=== PATIENT | female | born 1945 | race Caucasian/White ===

== ENCOUNTER → 2022-12-06 14:49 | Outpatient (BNVA) | payer MEDICARE, SELFPAY | PROVIDERS: Visit Provider Hospitalist | DX: J43.2 Centrilobular emphysema (principal); J96.11 Chronic respiratory failure with hypoxia; G47.33 Obstructive sleep apnea (adult) (pediatric); Z99.89 Dependence on other enabling machines and devices; S22.000D Wedge compression fracture of unspecified thoracic vertebra, subsequent encounter for fracture with routine healing | CPT/HCPCS: 99202 ==

== ENCOUNTER 2022-12-25 10:57 | Outpatient (REF) | payer MEDICARE, SELFPAY ==
--- NOTE | 2022-12-25 15:40 | PFT_ITS ---
INDICATION: COPD. SPIROMETRY: FEV1 to FVC of 64% with an FEV1 of 0.81 L, which is 43% predicted and an FVC of 1.26 L, which is 50% predicted. No significant response to bronchodilators noted. Maximum voluntary ventilation 36% predicted. LUNG VOLUMES: Total lung capacity 73% predicted. DIFFUSION CAPACITY: DLCO 44% predicted. COMPARISONS: None. INTERPRETATION: There is an obstructive ventilatory defect consistent with severe COPD. No significant response to bronchodilators noted. There is also severe decrease in maximum voluntary ventilation secondary to likely deconditioning. In addition to this, the patient does have a mild restrictive ventilatory defect secondary to likely interstitial lung conditions and/or neuromuscular conditions. The patient also has a severe diffusion impairment. No comparison is available. Clinical correlation warranted. MD RANJIT Ortiz/MODL / [id number]
== END 2022-12-25 10:58 | disposition home or self-care (01) ==
LOC: HO.RESP 10:57
PROVIDERS: Visit Provider Hospitalist
DX: J44.9 Chronic obstructive pulmonary disease, unspecified (principal)
CPT/HCPCS: 94060; 94727; 94729

== ENCOUNTER → 2023-02-06 09:42 | Outpatient (BNVA) | payer MEDICARE, SELFPAY | PROVIDERS: PCP Nurse Practitioner Primary Care; Visit Provider Hospitalist | DX: J43.2 Centrilobular emphysema (principal); J96.11 Chronic respiratory failure with hypoxia; G47.33 Obstructive sleep apnea (adult) (pediatric); S22.000A Wedge compression fracture of unspecified thoracic vertebra, initial encounter for closed fracture; Z79.52 Long term (current) use of systemic steroids; Z79.899 Other long term (current) drug therapy; Z99.81 Dependence on supplemental oxygen; Z99.89 Dependence on other enabling machines and devices | CPT/HCPCS: 94618; 99212 ==

== ENCOUNTER 2023-11-22 09:31 | Outpatient (AMB) | payer MEDICARE, SELFPAY ==
[2023-11-22 09:38] VITALS: BP 102/60; PULSE 82; O2SAT 95; BMI 29.3
--- NOTE | 2023-11-22 09:38 | A.OFFVIS_ITS ---
Intake Vital Signs 11/22/23 09:38 Height 5 ft 2 in Weight 160 lb 0.94 oz BMI 29.3 BP 102/60 Blood Pressure Location Lt brachial Position Sitting Pulse 82 Pulse Source Pulse Oximeter Pulse Oximetry (%) 95 Oxygen Delivery Method Room Air Intake Visit Reasons: COPD Intake Note: pt is here for follow up and states she is doing well today with her breathing, was in hospital after ablation surgery that the next day had to call ambulance due to unable to wake her, DX elevated CO2, touch of pneumonia, and flu at [facility], Marketing Strategy Analyst Required: No Allergies acetaminophen [From Percocet] Adverse Reaction (Severe, Verified 11/22/23 09:43) Vomiting aspirin [From Percodan] Adverse Reaction (Severe, Verified 11/22/23 09:43) Vomiting oxycodone [From Percocet] Adverse Reaction (Severe, Verified 11/22/23 09:43) Vomiting HPI HPI Comments History of Present Illness Details The patient is a 78 year woman former smoker with a 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 The patient has been on Incruse for many years. She has also been on prednisone. Her last CT scan of the chest that we have on record was done at [facility] back in 2021 demonstrating extensive emphysema in addition to that does have evidence of compression fractures. She does not complain of significant pain. Although she is aware that the prednisone will potentially affect her healing and potentially cause worsening of the osteopenia and osteoporosis predisposing her to more fractures. The her last PFTs occurred back in 2020 with an FEV1 of 0.9 L which is around 60% predicted consistent moderate to severe COPD. The patient does have oxygen that she uses with activity. She also has a CPAP that she uses at nighttime. 02/06/2023 the patient is here for a pulmo nary follow-up visit. The patient doing a lot better on the Trelegy inhaler. She still using the oxygen although difficult to carry. We did do a conserving device trial she did good on 3 L pulse. Will try to get a portable oxygen concentrator in order for her to have better portability outside the home. In the meantime, she will continue with the B cylinders the. We did review her PFTs demonstrating severe COPD in addition to mild restrictive lung disease. She continues to use her CPAP. However, she is not tolerating the fullface mask. I did have a nasal N30i small mask that she tried in the like. I will send a prescription to her [employer] company as well. 11/22/2023 the patient is here for a pulmonary follow-up visit. She continues to do fairly well on the Trelegy inhaler. She does use it every day. She also has a rescue inhaler that she has not required. The patient is having issues with shortness breath. She does have the oxygen tanks but they are very heavy for her. Is hard for her to have any portability outside of the home with the oxygen tanks. We had requested a portable oxygen concentrator for her. She does qualify for the conserving device. We did requalify her with a 6 minute walk test today and again she did require 2 L pulse to maintain a pulse ox of 92%. Will go ahead and request from her [employer] company the POC for better portability. In the meantime the patient continues to use her CPAP at nighttime. With her underlying COPD and chronic respiratory failure will go ahead and check a blood gas to see if we need to consider noninvasive ventilation. Her last CT scan was from June 2023 with emphysematous changes. no pulmonary emboli appreciated on the CT scan. [facility] Medical History (Updated 12/11/22 @ 09:25 by Shon Gunderson MD) NAKIA on CPAP Compression fracture of body of thoracic vertebra Chronic respiratory failure COPD (chronic obstructive pulmonary disease) Dependence on nocturnal oxygen therapy BRENDA (iron deficiency anemia) (HFpEF) heart failure with preserved ejection fraction Aortic stenosis GERD (gastroesophageal reflux disease) Hypertension Atrial fibrillation Surgical History (Updated 12/06/22 @ 13:47 by Jerri Noguera PA-C) Presence of Watchman left atrial appendage closure device S/P cryoablation of arrhythmia Social History Patient Tobacco Use Status: Former Tobacco user Tobacco use type: Cigarette Years Smoked: 20+ Years Review of Systems Const Reports daytime sleepiness and Denies fever(s) Eyes Denies change in vision ENT Denies change in voice Card Denies chest pain and Reports dyspnea on exertion Resp Reports cough, Reports dyspnea on exertion and Denies wheezing GI Reports no additional complaints Musc Reports myalgias Skin/Breast Denies rash Neuro Reports no additional complaints Martin/Lymph Denies easy bruising and Denies lymphadenopathy Aller/Immun Denies wheezing Physical Exam Vital Signs: Last Vital Signs Pulse 82 11/22/23 09:38 BP 102/60 11/22/23 09:38 Pulse Ox 95 11/22/23 09:38 Oxygen Delivery Method Room Air 11/22/23 09:38 BMI result Body Mass Index 29.3 Const General: comfortable HEENT Head: Yes normocephalic Neck Neck: Yes supple Chest Chest palpation & inspection: normal inspection of the chest Resp Auscultation: diminished lung sounds Cardio Rate: regular rate Rhythm: regular rhythm Heart sounds: S1 normal heart sound present and S2 normal heart sound present GI Palpation (GI): Soft to palpation Skin General skin exam: no rashes or lesions noted Extrem General: Yes no clubbing, cyanosis or edema Office Procedures 6 Minute Walk Time:: 19:12 SPO2 % at rest: 94 Pulse at rest: 78 SPO2 % during excercise: 88 Pulse during excercise: 90 Distance in yards walked: 100 Becky Score: 6 Supplemental Oxygen: The patient was ambulated initially on room air. She desaturated down to 88% after a brief walk. The patient was then placed on 2 L pulse and then increase to 3 L pulse to maintain a pulse ox of 92% with activity. [id number] - 6 Minute Walk Assessment & Plan Assessment & Plan (1) COPD (chronic obstructive pulmonary disease): Code(s): J44.9 - Chronic obstructive pulmonary disease, unspecified Qualifiers: COPD type: emphysema Emphysema type: centrilobular Qualified Code(s): J43.2 - Centrilobular emphysema (2) Chronic respiratory failure: Code(s): J96.10 - Chronic respiratory failure, unspecified whether with hypoxia or hypercapnia Qualifiers: Respiratory failure complication: hypoxia Qualified Code(s): J96.11 - Chronic respiratory failure with hypoxia (3) Compression fracture of body of thoracic vertebra: Code(s): S22.000A - Wedge compression fracture of unspecified thoracic vertebra, initial encounter for closed fracture (4) NAKIA on CPAP: Code(s): G47.33 - Obstructive sleep apnea (adult) (pediatric); Z99.89 - Dependence on other enabling machines and devices Plan continue Trelegy 200 BHARATI as needed continue APAP Bloodwork/blood gas continue oxygen, 3L pulse with activity, will benefit from a portable oxygen concentrator (POC) for better portability outside of the home. Decrease Prednisone 5mg daily every other day F/U 4-6 months Orders: Orders Venous Blood Gas 11/22/23 J44.9 - Chronic obstructive pulmonary disease, unspecified Immunoglobulin E 11/22/23 J44.9 - Chronic obstructive pulmonary disease, unspecified Erythrocyte Sedimentation Rate 11/22/23 J44.9 - Chronic obstructive pulmonary disease, unspecified Basic Metabolic Panel 11/22/23 J44.9 - Chronic obstructive pulmonary disease, unspecified Complete Blood Count Auto Diff 11/22/23 J44.9 - Chronic obstructive pulmonary disease, unspecified Immunoglobulins,IgG IgA IgM 11/22/23 J44.9 - Chronic obstructive pulmonary disease, unspecified Coding Level of Care Code Est Pt Level 4 (60287) Diagnoses Centrilobular emphysema J43.2 COPD type: emphysema Emphysema type: centrilobular Chronic respiratory failure with hypoxia J96.11 Respiratory failure complication: hypoxia Compression fracture of body of thoracic vertebra S22.000A NAKIA on CPAP G47.33; Z99.89 CPT Codes Coding ([id number]) Time Spent (min) 17
[2023-11-25 19:11] VITALS: PULSE 78; O2SAT 94
== END 2023-11-22 10:11 | disposition home or self-care (01) ==
PROVIDERS: PCP Nurse Practitioner Primary Care; Visit Provider Hospitalist
DX: J43.2 Centrilobular emphysema (principal); J96.11 Chronic respiratory failure with hypoxia; S22.000A Wedge compression fracture of unspecified thoracic vertebra, initial encounter for closed fracture; G47.33 Obstructive sleep apnea (adult) (pediatric); Z99.89 Dependence on other enabling machines and devices
CPT/HCPCS: 94618; 99214

== ENCOUNTER 2023-11-22 09:31 | Outpatient (REF) | payer MEDICARE, SELFPAY ==
[2023-11-22 10:27] LABS: MANUAL DIFF FLAG NO
[2023-11-22 10:33] LABS: Venous Blood Gas Refer to POC result
[2023-11-22 10:42] LABS: VBG pCO2 50 mmHg; VBG pH 7.47 (7.32-7.43); VBG pO2 30 mmHg
[2023-11-22 10:43] LABS: VBG Base Excess 11.7 mmol/L; VBG HCO3 36 mmol/L (22-26)
[2023-11-22 12:21] LABS: Anion Gap 11 (12-20); Blood Urea Nitrogen 18 mg/dL (9-16); Calcium 8.6 mg/dL (8.4-10.2); Carbon Dioxide 34 mmol/L (22-29); Chloride 101 mmol/L (96-108); Estimated Glomerular Filt Rate > 60; Glucose Random 84 mg/dL (60-115); Sodium 143 mmol/L (135-145)
[2023-11-22 12:23] LABS: Basophils Percent Auto 0.1 % (0-2); Hemoglobin 10.2 g/dl (12.0-16.0); Imm Gran Abs Auto 0.04 X10*3/uL (0.00-0.03); Imm Gran Pct Auto 0.4 % (0.0-0.4); Lymphocytes Absolute Auto 1.1 X10*3/uL (1.2-4.9); Lymphocytes Percent Auto 9.8 % (20-40); Mean Corpuscular HGB Conc 30.9 g/dl (31.0-35.0); Mean Corpuscular Volume 93.8 fL (80.0-98.0); Mean Platelet Volume 11.2 fL (9.4-12.3); Monocytes Absolute Auto 0.6 X10*3/uL (0.1-1.2); Monocytes Percent Auto 5.6 % (2-11); Neutrophils Absolute Auto 9.5 x10*3/uL (2.0-8.3); Neutrophils Percent Auto 84.1 % (45-73); Platelet Count 323 X10*3/uL (160-400); Red Blood Count 3.52 X10*6/uL (4.20-5.50); Red Cell Distribution Width 17.6 % (11.0-16.0); White Blood Count 11.3 X10*3/uL (4.8-10.8)
[2023-11-22 12:46] LABS: Erythrocyte Sedimentation Rate 23 MM/HR (0-20)
[2023-11-22 12:57] LABS: Potassium 2.7 mmol/L (3.3-5.1)
[2023-11-25 14:49] LABS: IgA 230 mg/dL (70-320); IgG 939 mg/dL (600-1540); IgM 222 mg/dL (50-300)
[2023-11-25 22:28] LABS: Immunoglobulin E 176 kU/L (<OR=114)
== END 2023-11-22 09:32 | disposition home or self-care (01) ==
LOC: HO.LAB 09:31
PROVIDERS: PCP Nurse Practitioner Primary Care; Visit Provider Hospitalist
DX: J43.2 Centrilobular emphysema (principal); J96.11 Chronic respiratory failure with hypoxia; J44.9 Chronic obstructive pulmonary disease, unspecified; G47.33 Obstructive sleep apnea (adult) (pediatric); Z99.81 Dependence on supplemental oxygen; Z99.89 Dependence on other enabling machines and devices
CPT/HCPCS: 36415; 80048; 82784; 82785; 82803; 85025; 85652; 94618; 99212

== ENCOUNTER 2024-03-25 09:16 | Outpatient (AMB) | payer MEDICARE, SELFPAY ==
--- NOTE | 2024-03-25 09:25 | MHC.OFFVIS ---
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 The patient has been on Incruse for many years. She has also been on prednisone. Her last CT scan of the chest that we have on record was done at [facility] back in 2021 demonstrating extensive emphysema in addition to that does have evidence of compression fractures. She does not complain of significant pain. Although she is aware that the prednisone will potentially affect her healing and potentially cause worsening of the osteopenia and osteoporosis predisposing her to more fractures. The her last PFTs occurred back in 2020 with an FEV1 of 0.9 L which is around 60% predicted consistent moderate to severe COPD. The patient does have oxygen that she uses with activity. She also has a CPAP that she uses at nighttime. 02/06/2023 the patient is here for a pulmonary follow-up visit. The patient doing a lot better on the Trelegy inhaler. She still using the oxygen although difficult to carry. We did do a conserving device trial she did good on 3 L pulse. Will try to get a portable oxygen concentrator in order for her to have better portability outside the home. In the meantime, she will continue with the B cylinders the. We did review her PFTs demonstrating severe COPD in addition to mild restrictive lung disease. She continues to use her CPAP. However, she is not tolerating the fullface mask. I did have a nasal N30i small mask that she tried in the like. I will send a prescription to her [employer] company as well. 11/22/2023 the patient is here for a pulmonary follow-up visit. She continues to do fairly well on the Trelegy inhaler. She does use it every day. She also has a rescue inhaler that she has not required. The patient is having issues with shortness breath. She does have the oxygen tanks but they are very heavy for her. Is hard for her to have any portability outside of the home with the oxygen tanks. We had requested a portable oxygen concentrator for her. She does qualify for the conserving device. We did requalify her with a 6 minute walk test today and again she did require 2 L pulse to maintain a pulse ox of 92%. Will go ahead and request from her [employer] company the POC for better portability. In the meantime the patient continues to use her CPAP at nighttime. With her underlying COPD and chronic respiratory failure will go ahead and check a blood gas to see if we need to consider noninvasive ventilation. Her last CT scan was from June 2023 with emphysematous changes. no pulmonary emboli appreciated on the CT scan. 03/25/2024 the patient is here for a pulmonary follow-up visit. She continues to do very well on the Trelegy inhaler. He has been very affecting beneficial. She has not required her rescue inhaler often. Typically less than 2 times a week. She also has been using her oxygen with the conserving device with activity. And she has her concentrator and home. She does use the oxygen with CPAP at nighttime. The therapy again has been effective. We did review her blood work that she had back in November. It was noted that she was anemic and also her potassium is critically low. She has not had any additional blood work since then. We had given her supplementation. I did give her paperwork for labs which will mail to her house in order for her to get blood work at [place]. There is her primary care doctor will have full access to her blood work as well. Make sure that she has not further new making make sure the potassium is corrected. But clinically she feels very well. Will follow-up in 6 months. If she has not difficulties prior to that she will call for an earlier assessment. [facility] Medical History (Updated 03/25/24 @ 22:07 by Shon Gunderson MD) Hypokalemia Anemia NAKIA on CPAP Compression fracture of body of thoracic vertebra Chronic respiratory failure COPD (chronic obstructive pulmonary disease) Dependence on nocturnal oxygen therapy BRENDA (iron deficiency anemia) (HFpEF) heart failure with preserved ejection fraction Aortic stenosis GERD (gastroesophageal reflux disease) Hypertension Atrial fibrillation Surgical History (Updated 12/06/22 @ 13:47 by Jerri Noguera PA-C) Presence of Watchman left atrial appendage closure device S/P cryoablation of arrhythmia Social History Patient Tobacco Use Status: Former Tobacco user Tobacco use type: Cigarette Years Smoked: 20+ Years Review of Systems Const Reports daytime sleepiness and Denies fever(s) Eyes Denies change in vision ENT Denies change in voice Card Denies chest pain and Reports dyspnea on exertion Resp Reports cough, Reports dyspnea on exertion and Denies wheezing GI Reports no additional complaints Musc Reports myalgias Skin/Breast Denies rash Neuro Reports no additional complaints Martin/Lymph Denies easy bruising and Denies lymphadenopathy Aller/Immun Denies wheezing Physical Exam Vital Signs: Last Vital Signs Pulse 77 03/25/24 09:26 Pulse Ox 95 03/25/24 09:26 Oxygen Delivery Method Room Air 03/25/24 09:26 BMI result Body Mass Index 29.3 Const General: comfortable HEENT Head: Yes normocephalic Neck Neck: Yes supple Chest Chest palpation & inspection: normal inspection of the chest Resp Auscultation: diminished lung sounds Cardio Rate: regular rate Rhythm: regular rhythm Heart sounds: S1 normal heart sound present and S2 normal heart sound present GI Palpation (GI): Soft to palpation Skin General skin exam: no rashes or lesions noted Extrem General: Yes no clubbing, cyanosis or edema Assessment & Plan Assessment & Plan (1) COPD (chronic obstructive pulmonary disease): Code(s): J44.9 - Chronic obstructive pulmonary disease, unspecified Category: Medical Qualifiers: COPD type: emphysema Emphysema type: centrilobular Qualified Code(s): J43.2 - Centrilobular emphysema (2) Chronic respiratory failure: Code(s): J96.10 - Chronic respiratory failure, unspecified whether with hypoxia or hypercapnia Category: Medical Qualifiers: Respiratory failure complication: hypoxia Qualified Code(s): J96.11 - Chronic respiratory failure with hypoxia (3) Compression fracture of body of thoracic vertebra: Code(s): S22.000A - Wedge compression fracture of unspecified thoracic vertebra, initial encounter for closed fracture Category: Medical (4) NAKIA on CPAP: Code(s): G47.33 - Obstructive sleep apnea (adult) (pediatric); Z99.89 - Dependence on other enabling machines and devices Category: Medical (5) Anemia: Code(s): D64.9 - Anemia, unspecified Category: Medical Qualifiers: Anemia type: unspecified type Qualified Code(s): D64.9 - Anemia, unspecified (6) Hypokalemia: Code(s): E87.6 - Hypokalemia Category: Medical Plan continue Trelegy 200 BHARATI as needed continue APAP Bloodwork continue oxygen, 3L pulse with activity, will benefit from a portable oxygen concentrator (POC) for better portability outside of the home. She waiting to qualify Prednisone 5mg daily every other day F/U 4-6 months Orders: Orders Complete Blood Count Auto Diff Today D64.9 - Anemia, unspecified, E87.6 - Hypokalemia Basic Metabolic Panel Today E87.6 - Hypokalemia Medications: New prednisone 10 mg (2 x 5 mg) PO DAILY 180 tabs 2RF 90 days Coding Level of Care Code Est Pt Level 4 (33186) Diagnoses Centrilobular emphysema J43.2 COPD type: emphysema Emphysema type: centrilobular Chronic respiratory failure with hypoxia J96.11 Respiratory failure complication: hypoxia Compression fracture of body of thoracic vertebra S22.000A NAKIA on CPAP G47.33; Z99.89 Anemia, unspecified type D64.9 Anemia type: unspecified type Hypokalemia E87.6 Time Spent (min) 16
[2024-03-25 09:26] VITALS: PULSE 77; O2SAT 95; BMI 29.3
== END 2024-03-25 09:47 | disposition home or self-care (01) ==
PROVIDERS: PCP Nurse Practitioner Primary Care; Visit Provider Hospitalist
DX: J43.2 Centrilobular emphysema (principal); J96.11 Chronic respiratory failure with hypoxia; S22.000A Wedge compression fracture of unspecified thoracic vertebra, initial encounter for closed fracture; G47.33 Obstructive sleep apnea (adult) (pediatric); Z99.89 Dependence on other enabling machines and devices; D64.9 Anemia, unspecified; E87.6 Hypokalemia
CPT/HCPCS: 99214

== ENCOUNTER → 2024-03-25 09:16 | Outpatient (BNVA) | payer MEDICARE, SELFPAY | PROVIDERS: PCP Nurse Practitioner Primary Care; Visit Provider Hospitalist | DX: J43.2 Centrilobular emphysema (principal); J96.11 Chronic respiratory failure with hypoxia; G47.33 Obstructive sleep apnea (adult) (pediatric); D64.9 Anemia, unspecified; E87.6 Hypokalemia; S22.000D Wedge compression fracture of unspecified thoracic vertebra, subsequent encounter for fracture with routine healing; Z99.89 Dependence on other enabling machines and devices | CPT/HCPCS: 99212 ==

== ENCOUNTER 2024-07-31 09:21 | Outpatient (AMB) | payer MEDICARE, SELFPAY ==
[2024-07-31 09:28] VITALS: BP 128/70; PULSE 84; O2SAT 94
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
[2024-07-31 12:41] VITALS: PULSE 78; O2SAT 92
== END 2024-07-31 09:56 | disposition home or self-care (01) ==
PROVIDERS: PCP Nurse Practitioner Primary Care; Visit Provider Hospitalist
DX: J43.2 Centrilobular emphysema (principal); J96.11 Chronic respiratory failure with hypoxia; S22.000A Wedge compression fracture of unspecified thoracic vertebra, initial encounter for closed fracture; G47.33 Obstructive sleep apnea (adult) (pediatric); Z99.89 Dependence on other enabling machines and devices; D64.9 Anemia, unspecified; E87.6 Hypokalemia
CPT/HCPCS: 94618; 99214; G2211

== ENCOUNTER → 2024-07-31 09:21 | Outpatient (BNVA) | payer MEDICARE, SELFPAY | PROVIDERS: PCP Nurse Practitioner Primary Care; Visit Provider Hospitalist | DX: J43.2 Centrilobular emphysema (principal); J96.11 Chronic respiratory failure with hypoxia; G47.33 Obstructive sleep apnea (adult) (pediatric); D64.9 Anemia, unspecified; E87.6 Hypokalemia; S22.000A Wedge compression fracture of unspecified thoracic vertebra, initial encounter for closed fracture; X58.XXXA Exposure to other specified factors, initial encounter; Y93.9 Activity, unspecified; Y92.9 Unspecified place or not applicable; Y99.9 Unspecified external cause status; Z79.52 Long term (current) use of systemic steroids; Z99.89 Dependence on other enabling machines and devices | CPT/HCPCS: 94618; 99212 ==

== ENCOUNTER 2025-03-16 11:09 | Outpatient (AMB) | payer MEDICARE, SELFPAY ==
[2025-03-16 11:12] VITALS: BP 130/52; PULSE 65; O2SAT 94; BMI 30.8
--- NOTE | 2025-03-16 11:12 | MHC.OFFVIS ---
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 The patient has been on Incruse for many years. She has also been on prednisone. Her last CT scan of the chest that we have on record was done at back in 2021 demonstrating extensive emphysema in addition to that does have evidence of compression fractures. She does not complain of significant pain. Although she is aware that the prednisone will potentially affect her healing and potentially cause worsening of the osteopenia and osteoporosis predisposing her to more fractures. The her last PFTs occurred back in 2020 with an FEV1 of 0.9 L which is around 60% predicted consistent moderate to severe COPD. The patient does have oxygen that she uses with activity. She also has a CPAP that she uses at nighttime. 02/06/2023 the patient is here for a pulmonary follow-up visit. The patient doing a lot better on the Trelegy inhaler. She still using the oxygen although difficult to carry. We did do a conserving device trial she did good on 3 L pulse. Will try to get a portable oxygen concentrator in order for her to have better portability outside the home. In the meantime, she will continue with the B cylinders the. We did review her PFTs demonstrating severe COPD in addition to mild restrictive lung disease. She continues to use her CPAP. However, she is not tolerating the fullface mask. I did have a nasal N30i small mask that she tried in the like. I will send a prescription to her [email or web address] company as well. 11/22/2023 the patient is here for a pulmonary follow-up visit. She continues to do fairly well on the Trelegy inhaler. She does use it every day. She also has a rescue inhaler that she has not required. The patient is having issues with shortness breath. She does have the oxygen tanks but they are very heavy for her. Is hard for her to have any portability outside of the home with the oxygen tanks. We had requested a portable oxygen concentrator for her. She does qualify for the conserving device. We did requalify her with a 6 minute walk test today and again she did require 2 L pulse to maintain a pulse ox of 92%. Will go ahead and request from her [email or web address] company the POC for better portability. In the meantime the patient continues to use her CPAP at nighttime. With her underlying COPD and chronic respiratory failure will go ahead and check a blood gas to see if we need to consider noninvasive ventilation. Her last CT scan was from June 2023 with emphysematous changes. no pulmonary emboli appreciated on the CT scan. 03/25/2024 the patient is here for a pulmonary follow-up visit. She continues to do very well on the Trelegy inhaler. He has been very affecting beneficial. She has not required her rescue inhaler often. Typically less than 2 times a week. She also has been using her oxygen with the conserving device with activity. And she has her concentrator and home. She does use the oxygen with CPAP at nighttime. The therapy again has been effective. We did review her blood work that she had back in November. It was noted that she was anemic and also her potassium is critically low. She has not had any additional blood work since then. We had given her supplementation. I did give her paperwork for labs which will mail to her house in order for her to get blood work at [place]. There is her primary care doctor will have full access to her blood work as well. Make sure that she has not further new making make sure the potassium is corrected. But clinically she feels very well. Will follow-up in 6 months. If she has not difficulties prior to that she will call for an earlier assessment. 07/31/2024 the patient is here for a pulmonary follow-up visit. She has been hospitalized times since we spoke. Overall she is doing better from a cardiac standpoint. The patient now needs to have a hernia repair for ventral hernia. This is going to be scheduled at [facility]. From a respiratory status she is doing well. She had been on Trelegy but now is extremely expensive likely because of the donut hole. She continues use the oxygen. Although she has not been able to get a portable oxygen concentrator. She is traumatized because of the oxygen tanks specially when on 1 of the oxygen tanks fell down to the ground and made a significant amount of noise and now she has traumatized with the oxygen tanks that she does not want to leave her house with the portable oxygen tanks. She needs a portable oxygen concentrator to help her have better portability outside of the home. We did do another walking oximetry today. She did desaturate to 88% on room air with activity and the patient did respond to 2 L pulse with activity maintaining a pulse ox of 94% with activity which is reassuring. She does need a POC in order to stay active. Today she came in with a wheelchair because she has a hard time without the I will reach out to [facility] [place] to explain to her the traumatize state that she has after the oxygen tank fell and therefore she can not use oxygen tanks for portability. She continues uses CPAP nighttime. The CPAP therapy continues to be affecting beneficial. Although the last 2 nights she has had nose bleeding she has not been able to use it. She is going to follow-up with ENT soon. She did need cautery sometime ago. For now she is using oxygen to sleep with. 03/16/2025 the patient is here for a pulmonary follow-up visit. She states that for the last few days her breathing has been gotten worse. Over the weekend she did take additional prednisone and also been doing the nebulizer treatments. She has felt better. Although she is still not her baseline. As far as medication changes recently she was taken off her Lasix 40 mg daily because her blood pressure was a little on the low side. She feels that that may be playing a role. I do believe she has gained some weight since stopping the Lasix and this is probably causing some vascular congestion. She does have some crackles on exam. Will have her get an x-ray. Meantime she is going to go back on the Lasix half dose and she is going to check her blood pressure with a blood pressure cuff she has not home. If her blood pressure still below 100 she can decrease it to half a tablet 3 times a week. But she needs to stay on some diuretic to improve her volume status minimize chest congestion and cardiac asthma. The patient also continues on prednisone he continues with respiratory therapy in her oxygen. If her x-ray is abnormal I will let her know. In the meantime she will call if her symptoms continue to persist. Will follow-up in 3-4 months. If she has any issues prior to that she will call for an earlier assessment. [facility] Medical History (Updated 03/25/24 @ 22:07 by Shon Gunderson MD) Hypokalemia Anemia NAKIA on CPAP Compression fracture of body of thoracic vertebra Chronic respiratory failure COPD (chronic obstructive pulmonary disease) Dependence on nocturnal oxygen therapy BRENDA (iron deficiency anemia) (HFpEF) heart failure with preserved ejection fraction Aortic stenosis GERD (gastroesophageal reflux disease) Hypertension Atrial fibrillation Surgical History (Updated 12/06/22 @ 13:47 by Jerri Noguera PA-C) Presence of Watchman left atrial appendage closure device S/P cryoablation of arrhythmia Social History Patient Tobacco Use Status: Former Tobacco user Tobacco use type: Cigarette Years Smoked: 20+ Years Review of Systems Const Reports daytime sleepiness and Denies fever(s) Eyes Denies change in vision ENT Denies change in voice Card Denies chest pain and Reports dyspnea on exertion Resp Reports cough, Reports dyspnea on exertion and Denies wheezing GI Reports no additional complaints Musc Reports myalgias Skin/Breast Denies rash Neuro Reports no additional complaints Martin/Lymph Denies easy bruising and Denies lymphadenopathy Aller/Immun Denies wheezing Physical Exam Vital Signs: Last Vital Signs Pulse 65 03/16/25 11:12 BP 130/52 L 03/16/25 11:12 Pulse Ox 94 03/16/25 11:12 Oxygen Delivery Method Room Air 03/16/25 11:12 BMI result Body Mass Index 30.8 Const General: comfortable HEENT Head: Yes normocephalic Neck Neck: Yes supple Chest Chest palpation & inspection: normal inspection of the chest Resp Effort & Inspection: normal respiratory effort Auscultation: crackles and diminished lung sounds Cardio Rate: regular rate Rhythm: regular rhythm Heart sounds: S1 normal heart sound present and S2 normal heart sound present GI Palpation (GI): Soft to palpation Skin General skin exam: no rashes or lesions noted Extrem General: Yes no clubbing, cyanosis or edema Assessment & Plan Assessment & Plan (1) COPD (chronic obstructive pulmonary disease): Code(s): J44.9 - Chronic obstructive pulmonary disease, unspecified Category: Medical Qualifiers: COPD type: emphysema Emphysema type: centrilobular Qualified Code(s): J43.2 - Centrilobular emphysema (2) Chronic respiratory failure: Code(s): J96.10 - Chronic respiratory failure, unspecified whether with hypoxia or hypercapnia Category: Medical Qualifiers: Respiratory failure complication: hypoxia Qualified Code(s): J96.11 - Chronic respiratory failure with hypoxia (3) Compression fracture of body of thoracic vertebra: Code(s): S22.000A - Wedge compression fracture of unspecified thoracic vertebra, initial encounter for closed fracture Category: Medical (4) NAKIA on CPAP: Code(s): G47.33 - Obstructive sleep apnea (adult) (pediatric); Z99.89 - Dependence on other enabling machines and devices Category: Medical (5) Anemia: Code(s): D64.9 - Anemia, unspecified Category: Medical Qualifiers: Anemia type: unspecified type Qualified Code(s): D64.9 - Anemia, unspecified Plan continue Trelegy 200 BHARATI as needed continue APAP Bloodwork needs POC oxygen, 3L pulse with activity, will benefit from a portable oxygen concentrator (POC) for better portability outside of the home. restart lasix, will monitor BP CXR Prednisone 5mg daily every other day F/U 4 months Orders: Orders XR chest 2V Today J43.2 - Centrilobular emphysema Coding Level of Care Code Est Pt Level 4 (94308) Complex EM visit Add On G2211 Diagnoses Centrilobular emphysema J43.2 COPD type: emphysema Emphysema type: centrilobular Chronic respiratory failure with hypoxia J96.11 Respiratory failure complication: hypoxia Compression fracture of body of thoracic vertebra S22.000A NAKIA on CPAP G47.33; Z99.89 Anemia, unspecified type D64.9 Anemia type: unspecified type Time Spent (min) 17
== END 2025-03-16 11:37 | disposition home or self-care (01) ==
LOC: HO.HPS 11:10
PROVIDERS: PCP Nurse Practitioner Primary Care; Visit Provider Hospitalist
DX: J43.2 Centrilobular emphysema (principal); J96.11 Chronic respiratory failure with hypoxia; S22.000A Wedge compression fracture of unspecified thoracic vertebra, initial encounter for closed fracture; G47.33 Obstructive sleep apnea (adult) (pediatric); Z99.89 Dependence on other enabling machines and devices; D64.9 Anemia, unspecified
CPT/HCPCS: 99214; G2211

== ENCOUNTER → 2025-03-16 11:09 | Outpatient (BNVA) | payer MEDICARE, SELFPAY | PROVIDERS: PCP Nurse Practitioner Primary Care; Visit Provider Hospitalist | DX: J43.2 Centrilobular emphysema (principal); J96.11 Chronic respiratory failure with hypoxia; I48.91 Unspecified atrial fibrillation; G47.33 Obstructive sleep apnea (adult) (pediatric); D64.9 Anemia, unspecified; S22.000A Wedge compression fracture of unspecified thoracic vertebra, initial encounter for closed fracture; Z79.52 Long term (current) use of systemic steroids; Z99.89 Dependence on other enabling machines and devices | CPT/HCPCS: 99212 ==

== ENCOUNTER 2025-03-19 11:44 | Outpatient (REF) | payer MEDICARE, SELFPAY ==
--- NOTE | ~2025-03-19 | XR_ITS ---
EXAMINATION: XR CHEST 2 VIEWS HISTORY: J43.2 - Centrilobular emphysema COMPARISON: There are no prior studies available for comparison. FINDINGS: PA and lateral views of the chest are submitted. There is an implantable cardiac monitoring device in the left anterior chest wall. There are patchy groundglass opacities in the left upper lobe. An additional ovoid nodule is seen in the left midlung zone. The right lung is clear. There is no pleural effusion, pneumothorax, or pulmonary vascular congestion. The heart is enlarged. The patient is status post aortic valve replacement. There is degenerative disc disease of the spine. XR/XR chest 2V IMPRESSION: Cardiomegaly. Groundglass opacities in the left upper lobe and ovoid nodule in the left midlung zone. Further evaluation with chest CT is recommended. Findings were sent to Dr. Shon Gunderson by secure text message on 03/19/2025 at 12:36 PM and acknowledged at 12:38 PM. Electronically signed by: Odell Morfin MD 03/19/2025 12:38 PM EDT
--- OUTSIDE RECORDS SUMMARY | 2025-03-19 12:45 | XMS_ITS | Clinical Summary ---
Author Organization [facility] [employer] Address [address] [facility] [place] [address] Phone Care Team Providers Care Public Health Veterinarian Name Role Phone Jerri Leija NP Primary Care Provider [phone] Allergies Active Allergy Reactions Criticality Noted Date Comments Azithromycin High 04/18/2017 Adverse Reaction, Severe, places her into AFIB Oxycodone Nausea And Vomiting Medium 11/10/2021 Oxycodone Hcl Nausea And Vomiting Medium 11/10/2021 Oxycodone-Aspirin 01/03/2017 Medications predniSONE (DELTASONE) 10 mg tablet Take 1 tab daily x 4 days, then 1/2 tab daily 4 Active metoprolol succinate (TOPROL-XL) 25 mg 24 hr tablet Take 0.5 Tablets by mouth daily. 4 Active levalbuterol (XOPENEX HFA) 45 mcg/actuation inhaler Inhale 1-2 Puffs into the lungs every 4 hours as needed for Wheezing, Shortness of Breath or Cough. 3 Active ferrous sulfate 325 mg (65 mg elemental iron) tablet Take 1 tablet (325 mg total) by mouth 1 (one) time each day. 4 Active fluticasone-ume clidinium-vilan terol (Trelegy Ellipta) 200-62.5-25 mcg inhaler INHALE 1 PUFF BY MOUTH DAILY FOR 30 DAYS 3 Active ASPIRIN ORAL Take by mouth. 81 MG Active multivitamin (MULTIPLE VITAMINS ORAL) TAKE 1 TABLET DAILY. 7 Active levalbuterol (XOPENEX) 0.31 mg/3 mL nebulizer solution Sig - Route: TAKE 3 ML BY NEBULIZATION EVERY 4 HOURS NEEDED FOR WHEEZING, SHORTNESS OF BREATH OR COUGH. - Nebulization Sent to pharmacy as: Levalbuterol HCl 0.31 MG/3ML Inhalation Nebulization Solution (XOPENEX) Active clotrimazole-be tamethasone (LOTRISONE) 1-0.05 % cream Sig: Apply to affected area twice daily as needed for maximum of 14 consecutive days Sent to pharmacy as: Clotrimazole-Bet amethasone 1-0.05 % External Cream Active atorvastatin (LIPITOR) 40 mg tabletIndicatio ns:Coronary artery disease involving [place] coronary artery of [place] heart without angina pectoris Take 1 tablet (40 mg total) by mouth 1 (one) time each day. 30 each 11 4 09/14/20 25 Active potassium chloride (MICRO-K) 10 mEq CR capsule TAKE 1 CAPSULE BY MOUTH DAILY FOR 360 DAYS. 90 capsule 1 5 Active omeprazole (PriLOSEC) [address] capsuleIndicati ons:Gastro-esop hageal reflux disease without esophagitis TAKE 1 CAPSULE BY MOUTH DAILY FOR 360 DAYS. 90 capsule 1 5 Active furosemide (LASIX) 40 mg tabletIndicatio ns:Gastro-esoph ageal reflux disease without esophagitis,Non rheumatic aortic (valve) stenosis TAKE 1 TABLET BY MOUTH EVERY DAY 90 tablet 1 5 Active polyethylene glycol (Miralax) 17 gram/dose oral powder Take 17 g by mouth 1 (one) time each day. 527 g 2 5 Active Active Problems Problem Noted Date Diagnosed Date Hypercholesterolemia 12/23/2024 Chronic bilateral low back pain with bilateral s ciatica 12/23/2024 Hx of atrioventricular node ablation 09/22/2024 Overview (09/22/2024): Status post AV node ablation and leadless ventricular pacemaker placement in June 2024. Follow-up capture thresholds and sensing are excellent. No [place] conduction. Pacemaker 09/14/2024 Overview (09/22/2024): June 29, 2024 - implant of SJM leadless pacemaker(aveir) with AV node ablation at [facility] by Dr. Berg Assessment & Plan (09/14/2024 12:48 PM EST): Functioning well on EKG. Continue to monitor through device clinic at [facility]. S/p TAVR (transcatheter aort ic valve replacement), bioprosthetic 09/01/2024 Overview (09/01/2024): Successful TAVR using 29mm Evolute Fx plus on July 20, [address] Vogt at [facility]. No complications. Discharged with Aspirin monotherapy. Assessment & Plan (09/22/2024 9:51 AM EST): Successful TAVR in July. I will have her schedule her post TAVR echo which was canceled when she was in the hospital. Assessment & Plan (09/14/2024 12:48 PM EST): Successful TAVR using 29mm EvoluteFx plus Bioprosthetic valve on 07/20/24. No complications. The patient is having symptomatic improvement following her TAVR. Her valve is workup well on exam and by symptoms. Instructed patient about the need for prophylactic antibiotics prior to dental work. She needs her one month TAVR echocardiogram completed. Coronary artery disease invo lving [place] coronary artery of [place] heart without angina pectoris 09/01/2024 Overview (09/01/2024): June 2024 - pre TAVR angiogram showed isolated 70% stenosis of the 1st diagonal artery Assessment & Plan (09/22/2024 9:51 AM EST): Stable coronary disease without active angina. Continue aspirin and atorvastatin. Assessment & Plan (09/14/2024 12:48 PM EST): Catheterization from 2023 showed isolated 70% stenosis of 1st diag with no other significant disease. Echocardiogram from July 2024 showed low normal LV systolic function with akinesis of mid to distal inferoseptal wall and apex. No anginal symptoms. Continue with aspirin, atorvastatin, metoprolol and furosemide. We discussed risk reduction through lifestyle choices including healthy diet, routine exercise and weight management. Orders: atorvastatin (LIPITOR) 40 mg tablet; Take 1 tablet (40 mg total) by mouth 1 (one) time each day. Ventral hernia 07/03/2024 Moderate persistent asthma without complication 01/23/2023 Acute respiratory failure wi th hypoxia ([facility] V24, [facility] V28) 01/04/2022 Chest pain 01/04/2022 (HFpEF) heart failure with p reserved ejection fraction ([facility] V24, [facility] V28) 01/04/2022 Overview (09/01/2024): July 2024 - Echocardiogram showed low normal left ventricular systolic function LVEF 50 to 55%, mild left ventricular hypertrophy, left atrial dilatation, preserved right ventricular systolic function, well-seated bioprosthetic TAVR valve with no evidence of prosthetic valve stenosis and mild perivalvular regurgitation Assessment & Plan (09/22/2024 9:50 AM EST): Appears euvolemic on exam today. Will continue current medications and low- sodium diet. Dyspnea much improved after TAVR and AV node ablation. Assessment & Plan (09/14/2024 12:48 PM EST): Echocardiogram from July 2024 showed low normal LV systolic function LVEF 50- 55%. Status post successful TAVR. She appears compensated on exam. Continue with furosemide, metoprolol and potassium supplement. Consider adding SGLT2 inhibitor. We reviewed heart failure management including low-sodium diet, symptom surveillance, daily weights and medication compliance. Atrial flutter ([facility] V24, [facility] V28) 2020 Shortness of breath on exertion 08/17/2021 Assessment & Plan (09/14/2024 12:48 PM EST): Residual combination of anemia, COPD and deconditioning. We discussed risk reduction through lifestyle choices including healthy diet, routine exercise and weight management. Follow up with pulmonary at regular interval and participate in cardiac and pulmonary rehab. Asthma 01/02/2018 Supplemental oxygen dependent 01/02/2018 Emphysema/COPD ([facility] V24, [facility] V28) 2016 Hypertension 08/11/2017 Assessment & Plan (09/14/2024 12:48 PM EST): Controlled. Continue with furosemide and metoprolol. Atrial fibrillation ([facility] V24, [facility] V28) 0 06/12/2017 Overview (09/01/2024): Non-longstanding persistent atrial fibrillation - initially on sotalol for rhythm control - status post cardioversion - additional recurrence with questionable atrial tachycardia - March 28, 2022 status post cryoballoon ablation of pulmonary veins - October 2022 recurrent atrial fibrillation sotalol resumed and repeat radiofrequency cath ablation of left superior pulmonary vein and right inferior pulmonary vein with discontinuation of sotalol after procedure - late 2022 significant shortness of breath in setting of pulmonary disease with persistent atrial tachycardia versus atrial flutter - November 2023 status post atrial flutter radiofrequency ablation with cardioversion; inducible nonsustained right atrial tachycardia - recurrent GI bleeds with ultimate placement of Watchman Assessment & Plan (09/22/2024 9:50 AM EST): Chronic atrial fibrillation status post AV node ablation, permanent pacemaker and watchman. Continue aspirin. No further therapy needed. Continue device follow-up quarterly. Assessment & Plan (09/14/2024 12:48 PM EST): Extensive history followed by our EP providers. Asymptomatic. S/p AV node ablation and SJM leadless PPM. CHADSVASc - 6. Not on AC therapy due to Watchman. Continue with metporolol. Orders: ECG 12 lead Gastroesophageal reflux disease 06/12/2017 Iron deficiency anemia 06/12/2017 Multiple pulmonary nodules 06/12/2017 Resolved Problems Problem Noted Date Diagnosed Date Resolved Date Acute on chronic diastolic ( congestive) heart failure ([facility] V24, [facility] V28) 11/13/202209/01 Aortic stenosis 08/17/2021 09/01/2024 Overview (07/03/2024): Last Assessment & Plan: She does have moderate aortic stenosis which was also confirmed on MILLIE. Nothing to do at this time. Will continue to monitor. Likely minimally contributory to her dyspnea. Congestive heart failure (CH F) ([facility] V24, [facility] V28) 01/02/2018 09/01/2024 Encounters Date Type Department Care Team Description 03/11/2025 11:30 AM EDT Office Visit [facility] - [facility] [phone] Houston Cam MD Other constipation (Primary Dx); Hypotension, unspecified hypotension type 03/09/20[facility] [address] [place] [place] [phone] Jerri Leija NP Constipation 12/23/2024 10:48 AM EDT - 12/23/2024 11:59 PM EDT [facility] [address] [place] [place] [address] [place] [place] [phone] Discharge Disposition: Home or Self Care 12/23/2024 10:15 AM EDT [facility] [address] [place], [place] [address], [place] [phone] Jerri Leija NP Hypercholesterolemia (Primary Dx); Pulmonary emphysema, unspecified emphysema type ([facility] V24, [facility] V28); Moderate persistent asthma without complication; Longstanding persistent atrial fibrillation ([facility] V24, [facility] V28); Chronic heart failure with preserved ejection fraction ([facility] V24, [facility] V28); Gastroesophageal reflux disease without esophagitis; Iron deficiency anemia due to chronic blood loss; Chronic bilateral low back pain with bilateral sciatica 12/22/2024 10:00 AM EDT Ancillary Procedure [facility] [address] [place] [address] Encounter for adjustment or management of cardiac device from Last 3 Months Immunizations Name Administration Dates Next Due Influenza Quadravalent, 0.5ml (Fluad) 65yo and o lder 07/22/2023 Influenza Quadravalent, 0.5m l (Fluzone High-dose) 65yo and older 08/08/2022 Influenza trivalent, 0.5mL ( Fluzone High-dose) 65yo and older 06/06/2024 Influenza, Unspecified 06/06/2024 Pneumococcal conjugate 13 va lent (Prevnar 13, PCV13) 2mo and older 09/04/2016 Pneumococcal conjugate 20 va lent (Prevnar 20, PCV 20) 2mo and older 04/04/2022 Pneumococcal polysaccharide 23 valent (Pneumovax 23) 2yo and older 09/06/2017 RSV, bivalent, protein subun it RSVpreF, 0.5mL, Preservative Free (Arexvy) 60yo and older 08/11/2023 Surgical History Surgery Date Site/Laterality Comments APPENDECTOMY CARPAL TUNNEL RELEASE COLONOSCOPY 10/07/2015 - 10/06/2016 HERNIA REPAIR HYSTERECTOMY 10/07/1988 - 10/06/1989 NECK SURGERY OTHER SURGICAL HISTORY watchman procedure Medical History Medical History Date Comments A-fib ([facility] V24, [facility] V28) Acute respiratory failure with hypoxia (CMS/HCC V24, [facility] V28) Asthma Anxiety NAKIA on CPAP Ventral hernia SOB (shortness of breath) Sciatica Multiple pulmonary nodules COPD (chronic obstructive pulmonary disease) (CM S/HCC V24, CMS/HCC V28) CHF (congestive heart failure) (CMS/HCC V24, CMS /HCC V28) Acute pancreatitis Family History Medical History Relation Name Comments Emphysema Father [place] at 74 Heart attack Maternal Grandmother Breast cancer Mother chr, of b reast cancer at 50 Hypertension Mother unknown cardiac Mother Breast cancer Other mother side x2 aunts other Sister sciatiac , card iac Relation Name Status Comments Father Maternal Grandmother Mother Other mother side Sister Social History Tobacco Use Types Packs/Day Years Used Date Smoking Tobacco: Former Cigarettes Smokeless Tobacco: Never Tobacco Cessation:Counseling Given: Not Answered Alcohol Use Standard Drinks/Week Comments Not Currently 0 (1 standard drink = 0.6 oz pur e alcohol) Comments No Sex and Gender Information Value Date Recorded Sex Assigned at Not on file Legal Sex Female 11:56 AM EST Gender Identity Not on file Sexual Orientation Not on file Obstetrics History Last Filed Vital Signs Vital Sign Reading Time Taken Comments Blood Pressure 96/45 03/11/2025 11:30 AM EDT Pulse 71 03/11/2025 11:30 AM EDT Temperature - - Respiratory Rate - - Oxygen Saturation 93% 09/22/2024 9:02 AM EST Inhaled Oxygen Concentration - - Weight 75.4 kg (166 lb 4.8 oz) 03/11/2025 11:30 AM EDT Height 157.5 cm (5' 2 ) 12/23/2024 10:16 AM EDT Body Mass Index 30.42 12/23/2024 10:16 AM EDT Plan of Treatment Upcoming Encounters Date Type Department Care Team (Late st Contact Info) Description 04/26/2025 10:15 AM EDT [facility] [address] [place] [phone] Jerri Leija NP [address] [place] [address] 06/17/2025 10:30 AM EDT Ancillary Procedure [facility] [address] [facility] [address] [place] [phone] Health Maintenance Due Date Last Done Comments DTaP,Tdap,and Td Vaccines (1 - Tdap) 1965 Zoster Vaccines (1 of 2) 1996 Depression Screening 09/15/2022 Falls Risk Assessment 09/15/2022 Hepatitis C Screening 09/15/2022 Medicare Annual Wellness Visit 09/15/2022 Osteoporosis Screening (Bone Density Screening) 09/15/2022 Social Influencers of Health Screening 09/15/2022 COVID-19 Vaccine ( season) 2025 08/29/2024, 07/22/2023, 10/10/2022, Additional history exists Hypertension/CHF/CAD Annual BMP Blood Test 12/23/2025 12/23/2024, 08/19/2024, 05/06/2024, Additional history exists Cholesterol Screening (Lipid Panel) 12/23/2029 12/23/2024, 01/23/2023 Pneumococcal Vaccine: 50+ Years Completed 04/04/2022, 09/06/2017, 09/04/2016 RSV Immunization Adult Patients Completed 08/11/2023 Influenza Vaccine Completed 06/06/2024, , 07/22/2023, Additional history exists HIB Vaccines Aged Out No longer eligi ble based on patient's age to complete this topic HPV Vaccines Aged Out No longer eligi ble based on patient's age to complete this topic Hepatitis A Vaccines Aged Out No long er eligible based on patient's age to complete this topic Hepatitis B Vaccines Aged Out No long er eligible based on patient's age to complete this topic IPV Vaccines Aged Out No longer eligi ble based on patient's age to complete this topic MMR Vaccines Aged Out No longer eligi ble based on patient's age to complete this topic Meningococcal ACWY Vaccine Aged Out N o longer eligible based on patient's age to complete this topic Meningococcal B Vaccine Aged Out No l onger eligible based on patient's age to complete this topic RSV Immunization Patients Under 20 months Aged Out No longer eligible based on patient's age to complete this topic Varicella Vaccines Aged Out No longer eligible based on patient's age to complete this topic Medical Devices Implanted Type Area Bronze Chaser Device Identifier Shelf Expiration Date Model / Serial / Lot Cardiac Pacemaker-06/08 Implanted: by Gonzales Berg MD (Quantity not on file) Cardiac Pacemaker Right: Heart [facility] [employer] CRMD++DNU+ABBT/ STJU Description:Leadless Avier V R Abbt-Stju Aveir Vr Lp [id number] -06/29/2024 Implanted: by Gonzales Berg MD (Quantity not on file) Cardiac Pacemaker Left: Chest [employer] [employer] [id number] / [id number] / Abbt-Stju Aveir Vr Lp [id number] Implanted: (Quantity not on file) Cardiac Pacemaker [employer] [id number] / [id number] / Procedures Procedure Name Priority Date/Time Associated Diagnosis Comments CBC WITH AUTO DIFFERENTIAL Routine 12/23/2024 11:40 AM EDT Iron deficiency anemia due to chronic blood loss ALANINE AMINOTRANSFERASE Routine 025 11:40 AM EDT Hypercholesterolem ia ASPARTATE AMINOTRANSFERASE Routine 12/23/2024 11:40 AM EDT Hypercholesterolem ia BASIC METABOLIC PANEL Routine 12/23/2024 11:40 AM EDT Chronic heart failure with preserved ejection fraction (CMS/HCC V24, CMS/HCC V28) CBC AND DIFFERENTIAL Routine 12/23/2024 11:40 AM EDT Iron deficiency anemia due to chronic blood loss IRON AND TIBC Routine 12/23/2024 11:40 AM EDT Iron deficiency anemia due to chronic blood loss LIPID PANEL WITH REFLEX TO DIRECT LDL Routine 12/23/2024 11:40 AM EDT Hypercholesterolem ia XR LUMBAR SPINE 4+ VIEWS Routine 025 10:59 AM EDT Chronic bilateral low back pain with bilateral sciatica CARDIAC DEVICE CHECK- [place] [facility]- [facility] Routine 12/22/2024 10:10 AM EDT Encounter for adjustment or management of cardiac device from Last 3 Months Results * Lipid panel with reflex to direct LDL (12/23/2024 11:40 AM EDT) Cholesterol 157 0 - 200 mg/dL LAB CHEMISTRY METHOD 12/23/2024 3:43 PM EDT [facility] Triglycerides 122 0 - 150 mg/dL LAB CHEMISTRY METHOD 12/23/2024 3:43 PM EDT [facility] HDL 75 >=40 mg/dL LAB CHEMISTRY METHOD 12/23/2024 3:43 PM EDT [facility] LDL Calculated 58 0 - 100 mg/dL LAB CHEMISTRY METHOD 12/23/2024 3:43 PM EDT [facility] VLDL Cholesterol Tad 24.4 mg/dL LAB CHEMISTRY METHOD 12/23/2024 3:43 PM EDT [facility] Non HDL Chol. (LDL+VLDL) 82 <145 mg/dL LAB CHEMISTRY METHOD 12/23/2024 3:43 PM EDT [facility] Chol/HDL Ratio 2.1 0.0 - 4.4 LAB CHEMISTRY METHOD 12/23/2024 3:43 PM EDT [facility] Blood Venous blood specimen / Unknown Venipuncture / Unknown 12/23/2024 11:40 AM EDT 12/23/2024 11:43 AM EDT Jerri Leija PPAP COORDINATOR LAB BLOOD ORDERABLES Final Resu lt [facility] [address] [place] [address], * (ABNORMAL) CBC auto differential (12/23/2024 11:40 AM EDT) WBC 10.4 4.8 - 10.8 K/mcL LAB HEMETOLOGY METHOD 12/23/2024 2:20 PM EDT [facility] RBC 4.20 3.80 - 4.80 M/mcL LAB HEMETOLOGY METHOD 12/23/2024 2:20 PM EDT [facility] Hemoglobin 13.1 11.5 - 16.0 g/dL LAB HEMETOLOGY METHOD 12/23/2024 2:20 PM EDT [facility] Hematocrit 40.5 35.0 - 47.0 % LAB HEMETOLOGY METHOD 12/23/2024 2:20 PM EDT [facility] MCV 95.7 79.0 - 98.0 FL LAB HEMETOLOGY METHOD 12/23/2024 2:20 PM EDT [facility] MCH 31.0 27.0 - 32.0 pcg LAB HEMETOLOGY METHOD 12/23/2024 2:20 PM EDT [facility] MCHC 32.3 32.0 - 37.0 g/dL LAB HEMETOLOGY METHOD 12/23/2024 2:20 PM EDT [facility] RDW 13.8 11.0 - 15.0 % LAB HEMETOLOGY METHOD 12/23/2024 2:20 PM EDT [facility] Platelets 260 130 - 400 K/mcL LAB HEMETOLOGY METHOD 12/23/2024 2:20 PM EDT [facility] MPV 10.4 7.0 - 11.0 FL LAB HEMETOLOGY METHOD 12/23/2024 2:20 PM EDT [facility] NRBC 0.0 <1.0 % LAB HEMETOLOGY METHOD 12/23/2024 2:20 PM EDT [facility] NRBC Absolute 0.00 <0.10 K/mcL LAB HEMETOLOGY METHOD 12/23/2024 2:20 PM EDT [facility] Neutrophils Relative 83.2 % LAB HEMETOLOGY METHOD 12/23/2024 2:20 PM EDT [facility] Lymphocytes Relative 7.7 % LAB HEMETOLOGY METHOD 12/23/2024 2:20 PM EDT [facility] Monocytes Relative 7.1 % LAB HEMETOLOGY METHOD 12/23/2024 [facility] Eosinophils Relative 1.2 % LAB HEMETOLOGY METHOD 12/23/2024 2:20 PM T [facility] Basophils Relative 0.5 % LAB HEMETOLOGY METHOD 12/23/2024 2:20 PM EDT [facility] Immature Granulocytes Relative 0.3 % LAB HEMETOLOGY METHOD 12/23/2024 2:20 PM EDT [facility] Neutrophils Absolute 8.62(H) 1.50 - 7.00 K/mcL LAB HEMETOLOGY METHOD 12/23/2024 2:20 PM EDT [facility] Lymphocytes Absolute 0.80(L) 1.00 - 5.00 K/mcL LAB HEMETOLOGY METHOD 12/23/2024 2:20 PM EDT [facility] Monocytes Absolute 0.73 0.20 - 1.00 K/mcL LAB HEMETOLOGY METHOD 12/23/2024 2:20 PM EDT [facility] Eosinophils Absolute 0.12 0.00 - 0.50 K/mcL LAB HEMETOLOGY METHOD 12/23/2024 2:20 PM EDT [facility] Basophils Absolute 0.05 0.00 - 0.20 K/mcL LAB HEMETOLOGY METHOD 12/23/2024 2:20 PM EDT [facility] Immature Granulocytes Absolute 0.03 0.00 - 0.03 K/mcL LAB HEMETOLOGY METHOD 12/23/2024 2:20 PM EDT [facility] Blood Venous blood specimen / Unknown Venipuncture / Unknown 12/23/2024 11:40 AM EDT 12/23/2024 11:43 AM EDT us Jerri Leija PPAP COORDINATOR LAB BLOOD ORDERABLES Final Resu lt [facility] [address] [place] [address], * (ABNORMAL) Iron and TIBC (12/23/2024 11:40 AM EDT) Iron 191(H) 40 - 150 mcg/dL LAB CHEMISTRY METHOD 12/23/2024 3:43 PM EDT [facility] TIBC 275 250 - 450 mcg/dL LAB CHEMISTRY METHOD 12/23/2024 3:43 PM EDT [facility] Iron Saturation 69(H) 15 - 50 % LAB CHEMISTRY METHOD 12/23/2024 3:43 PM EDT [facility] Blood Venous blood specimen / Unknown Venipuncture / Unknown 12/23/2024 11:40 AM EDT 12/23/2024 11:43 AM EDT us Jerri Johnsonti LAB BLOOD ORDERABLES Final Resu lt Performing Organization Address [facility]/ZIP Co de Phone Number [facility] [address] [place] [address], [place] [phone] * Alanine aminotransferase (12/23/2024 11:40 AM EDT) ALT (SGPT) 24 10 - 60 unit/L LAB CHEMISTRY METHOD 12/23/2024 3:40 PM EDT [facility] Blood Venous blood specimen / Unknown Venipuncture / Unknown 12/23/2024 11:40 AM EDT 12/23/2024 11:43 AM EDT Jerri Leija LAB BLOOD ORDERABLES Final Resu lt Performing Organization Address [facility] Co de Phone Number [facility] [address] [place] [address], [place] [phone] * Aspartate aminotransferase (12/23/2024 11:40 AM EDT) AST (SGOT) 17 10 - 42 unit/L LAB CHEMISTRY METHOD 12/23/2024 3:43 PM EDT [facility] Blood Venous blood specimen / Unknown Venipuncture / Unknown 12/23/2024 11:40 AM EDT 12/23/2024 11:43 AM EDT Jerri Leija LAB BLOOD ORDERABLES Final Resu lt Performing Organization Address City/[facility]/ZIP Co de Phone Number [facility] [address] [place] [address], [place] [phone] * Basic metabolic panel (12/23/2024 11:40 AM EDT) Sodium 136 133 - 145 mmol/L LAB CHEMISTRY METHOD 12/23/2024 3:40 PM EDT [facility] Potassium 4.1 3.5 - 5.5 mmol/L LAB CHEMISTRY METHOD 12/23/2024 3:40 PM T [facility] Chloride 100 96 - 110 mmol/L LAB CHEMISTRY METHOD 12/23/2024 3:40 PM [facility] CO2 30 21 - 32 mmol/L LAB CHEMISTRY METHOD 12/23/2024 3:40 PM [facility] Anion Gap 6 3 - 11 LAB CHEMISTRY METHOD 12/23/2024 3:40 PM EDT [facility] Glucose 98 70 - 100 mg/dL LAB CHEMISTRY METHOD 12/23/2024 3:40 PM [facility] BUN 14 5 - 25 mg/dL LAB CHEMISTRY METHOD 12/23/2024 3:40 PM [facility] Creatinine 0.91 0.50 - 1.10 mg/dL LAB CHEMISTRY METHOD 12/23/2024 3:40 PM [facility] eGFR 65 >=60 mL/min/1. 73m2 LAB CHEMISTRY METHOD 12/23/2024 3:40 PM T [facility] Comment:Calculation based on the??Chronic Kidney Disease Epidemiology Collaboration (CKD-EPI) equation refit??without adjustment for race. BUN/Creatinine Ratio 15.4 LAB CHEMISTRY METHOD 12/23/2024 3:40 PM T [facility] Calcium 9.2 8.5 - 10.5 mg/dL LAB CHEMISTRY METHOD 12/23/2024 3:40 PM EDT [facility] Blood Venous blood specimen / Unknown Venipuncture / Unknown 12/23/2024 11:40 AM EDT 12/23/2024 11:43 AM EDT us Jerri Leija NP LAB BLOOD ORDERABLES Final Resu lt [facility] [address] [place] [address], * XR Lumbar Spine 4+ Views (12/23/2024 10:59 AM EDT) Anatomical Region Laterality Modality Spine, L-spine Radiographic Mackenzie ging 12/23/2024 1:43 PM EDT Impressions 12/23/2024 1:47 PM EDT Age-indeterminate anterior wedge deformity of L1 vertebral body. -------- FINAL REPORT -------- Dictated By: Feliciano Perea Dictated Date: 12/23/2024 13:43 ET Assigned Physician: Feliciano Perea Reviewed and Electronically Signed By: Feliciano Perea Signed Date: 12/23/2024 13:47 ET Workstation ID: [id number] Transcribed By: Self Edit Transcribed Date: 12/23/2024 13:43 ET Narrative 12/23/2024 1:47 PM EDT XR LUMBAR SPINE 5 VIEWS Reason: pain Comparison: None FINDINGS: Scoliosis. ??Grade 1 anterolisthesis of L4 on L5. ??Grade 1 retrolisthesis of L2 on L3 and L3 on L4. ??Diffuse bone demineralization and overlying soft tissue partially limits evaluation. ??Anterior wedge deformity of L1 vertebral body. ??Disc space narrowing and sclerotic endplate changes are more prominent at T11-T12. ??Sacroiliac joints are intact. Procedure Note Feliciano Perea MD - 12/23/2024 XR LUMBAR SPINE 5 VIEWS Reason: pain Comparison: None FINDINGS: Scoliosis. Grade 1 anterolisthesis of L4 on L5. Grade 1 retrolisthesisof L2 on L3 and L3 on L4. Diffuse bone demineralization and overlyingsoft tissue partially limits evaluation. Anterior wedge deformity of [id number] body. Disc space narrowing and sclerotic endplate changes aremore prominent at T11-T12. Sacroiliac joints are intact. IMPRESSION: Age-indeterminate anterior wedge deformity of L1 vertebral body. -------- FINAL REPORT -------- Dictated By: Feliciano Perea Dictated Date: 12/23/2024 13:43 ET Assigned Physician: Feliciano Perea Reviewed and Electronically Signed By: Feliciano Peera Signed Date: 12/23/2024 13:47 ET Workstation ID: [id number] Transcribed By: Self Edit Transcribed Date: 12/23/2024 13:43 ET Jerri Leija NP IMG XR PROCEDURES Final Result * CARDIAC DEVICE CHECK- IN CL[facility]- [facility] [place] (12/22/2024 10:10 AM EDT) Date Time Interrogation Session [id number] CV DEVICE CHECK Implantable Pulse Generator Bronze Chaser [employer] CV DEVICE CHECK Implantable Pulse Generator Type IPG CV DEVICE CHECK Implantable Pulse Generator Model Aveir VR LP [id number] CV DEVICE CHECK Implantable Pulse Generator Serial Number [id number] CV DEVICE CHECK Implantable Pulse Generator Implant Date 20240629 CV DEVICE CHECK Battery Status Middle of Service CV DEVICE CHECK Yann Statistic RV Percent Paced 99.00 CV DEVICE CHECK Lead Channel Sensing Intrinsic Amplitude 6.600 CV DEVICE CHECK Lead Channel Impedance Value 460 CV DEVICE CHECK Lead Channel Pacing Threshold Amplitude 0.750 CV DEVICE CHECK Lead Channel Pacing Threshold Pulse Width 0.4 CV DEVICE CHECK Yann Setting Mode (NBG Code) VVIR CV DEVICE CHECK Yann Setting Lower Rate Limit 60 CV DEVICE CHECK Yann Setting Maximum Sensor Rate 110 CV DEVICE CHECK Date of Service 2025-07-07 CV DEVICE CHECK Anatomical Region Laterality Modality Device Interroga tion 12/22/2024 Impressions 12/22/2024 3:04 PM EDT Normal In-Office: No Events * Normal Device Function * Alerts or events: None * Battery: MOS, 8.3 years * Sensing, impedance and thresholds reviewed and tested * Presenting Rhythm: CONTRACT ADMINISTRATOR 70's (base rate lowered to 60 bpm today, per protocol) * Underlying Rhythm: VS 30's * Heart Rate Histograms reviewed * Pacing and Detection Parameters were evaluated Narrative Procedure Note Gonzales Berg MD - 12/22/2024 IMPRESSION: Normal In-Office: No Events * Normal Device Function * Alerts or events: None * Battery: MOS, 8.3 years * Sensing, impedance and thresholds reviewed and tested * Presenting Rhythm: CONTRACT ADMINISTRATOR 70's (base rate lowered to 60 bpm today, perprotocol) * Underlying Rhythm: VS 30's * Heart Rate Histograms reviewed * Pacing and Detection Parameters were evaluated us Order Referral Cardiovascular CV IMPLANTABLE CAR DIAC DEVICE PROCEDURES Final Result from Last 3 Months Insurance [employer] MEDICARE ADVANTAGE Advance Directives Documents on File Type Date Recorded Patient Market News Reporter Expl anation Health Care Decision (hx) 11/11/2023 AD GARCIA DIRECTIVE Health Care Decision (hx) 11/11/2023 AD GARCIA DIRECTIVE Health Care Decision (hx) 11/11/2023 AD GARCIA DIRECTIVE Health Care Decision (hx) 02/06/2021 AD GARCIA DIRECTIVE Health Care Decision (hx) 02/06/2021 AD GARCIA DIRECTIVE Health Care Decision (hx) 02/06/2021 AD GARCIA DIRECTIVE Health Care Decision (hx) 02/06/2021 AD GARCIA DIRECTIVE Health Care Decision (hx) 02/06/2021 AD GARCIA DIRECTIVE Health Care Decision (hx) 02/06/2021 AD GARCIA DIRECTIVE Health Care Decision (hx) 02/06/2021 AD GARCIA DIRECTIVE Health Care Decision (hx) 02/06/2021 AD GARCIA DIRECTIVE Health Care Decision (hx) 02/06/2021 AD GARCIA DIRECTIVE Health Care Decision (hx) 02/06/2021 AD GARCIA DIRECTIVE Health Care Decision (hx) 02/06/2021 AD GARCIA DIRECTIVE Health Care Decision (hx) 02/06/2021 AD GARCIA DIRECTIVE Health Care Decision (hx) 02/06/2021 AD GARCIA DIRECTIVE Health Care Decision (hx) 02/06/2021 AD GARCIA DIRECTIVE Health Care Decision (hx) 02/06/2021 AD GARCIA DIRECTIVE Health Care Decision (hx) 02/06/2021 AD GARCIA DIRECTIVE Health Care Decision (hx) 02/06/2021 AD GARCIA DIRECTIVE Health Care Decision (hx) 02/06/2021 AD GARCIA DIRECTIVE Health Care Decision (hx) 02/06/2021 AD GARCIA DIRECTIVE Health Care Decision (hx) 02/06/2021 AD GARCIA DIRECTIVE Health Care Decision (hx) 02/06/2021 AD GARCIA DIRECTIVE Health Care Decision (hx) 02/06/2021 AD GARCIA DIRECTIVE Health Care Decision (hx) 02/06/2021 AD GARCIA DIRECTIVE Health Care Decision (hx) 02/06/2021 AD GARCIA DIRECTIVE Health Care Decision (hx) 02/06/2021 AD GARCIA DIRECTIVE Health Care Decision (hx) 02/06/2021 AD GARCIA DIRECTIVE Health Care Decision (hx) 02/06/2021 AD GARCIA DIRECTIVE Health Care Decision (hx) 02/06/2021 AD GARCIA DIRECTIVE Health Care Decision (hx) 02/06/2021 AD GARCIA DIRECTIVE Health Care Decision (hx) 02/26/2018 AD GARCIA DIRECTIVE Health Care Decision (hx) 02/26/2018 AD GARCIA DIRECTIVE Health Care Decision (hx) 02/26/2018 AD GARCIA DIRECTIVE Health Care Decision (hx) 02/26/2018 AD GARCIA DIRECTIVE Health Care Decision (hx) 02/26/2018 AD GARCIA DIRECTIVE Health Care Decision (hx) 02/26/2018 AD GARCIA DIRECTIVE Health Care Decision (hx) 02/26/2018 AD GARCIA DIRECTIVE Health Care Decision (hx) 02/26/2018 AD GARCIA DIRECTIVE Health Care Decision (hx) 02/26/2018 AD GARCIA DIRECTIVE Health Care Decision (hx) 02/26/2018 AD GARCIA DIRECTIVE Health Care Decision (hx) 02/26/2018 AD GARCIA DIRECTIVE Health Care Decision (hx) 02/26/2018 AD GARCIA DIRECTIVE Health Care Decision (hx) 02/26/2018 AD GARCIA DIRECTIVE Health Care Decision (hx) 02/26/2018 AD GARCIA DIRECTIVE Health Care Decision (hx) 02/26/2018 AD GARCIA DIRECTIVE Health Care Decision (hx) 02/26/2018 AD GARCIA DIRECTIVE Health Care Decision (hx) 02/26/2018 AD GARCIA DIRECTIVE Health Care Decision (hx) 02/26/2018 AD GARCIA DIRECTIVE Health Care Decision (hx) 02/26/2018 AD GARCIA DIRECTIVE Health Care Decision (hx) 02/26/2018 AD GARCIA DIRECTIVE Health Care Decision (hx) 02/26/2018 AD GARCIA DIRECTIVE Health Care Decision (hx) 02/26/2018 AD GARCIA DIRECTIVE Health Care Decision (hx) 02/26/2018 AD GARCIA DIRECTIVE Health Care Decision (hx) 02/26/2018 AD GARCIA DIRECTIVE Health Care Decision (hx) 02/26/2018 AD GARCIA DIRECTIVE Health Care Decision (hx) 02/26/2018 AD GARCIA DIRECTIVE Health Care Decision (hx) 02/26/2018 AD GARCIA DIRECTIVE Health Care Decision (hx) 02/26/2018 AD GARCIA DIRECTIVE Health Care Decision (hx) 02/26/2018 AD GARCIA DIRECTIVE Health Care Decision (hx) 02/26/2018 AD GARCIA DIRECTIVE Health Care Decision (hx) 02/26/2018 AD GARCIA DIRECTIVE Health Care Decision (hx) 02/26/2018 AD GARCIA DIRECTIVE Health Care Decision (hx) 02/26/2018 AD GARCIA DIRECTIVE Health Care Decision (hx) 02/26/2018 AD GARCIA DIRECTIVE Health Care Decision (hx) 02/26/2018 AD GARCIA DIRECTIVE Health Care Decision (hx) 02/26/2018 AD GARCIA DIRECTIVE Health Care Decision (hx) 02/26/2018 AD GARCIA DIRECTIVE Health Care Decision (hx) 02/26/2018 AD GARCIA DIRECTIVE Health Care Decision (hx) 02/26/2018 AD GARCIA DIRECTIVE Health Care Decision (hx) 02/26/2018 AD GARCIA DIRECTIVE Health Care Decision (hx) 02/26/2018 AD GARCIA DIRECTIVE Health Care Decision (hx) 02/26/2018 AD GARCIA DIRECTIVE Health Care Decision (hx) 02/26/2018 AD GARCIA DIRECTIVE Health Care Decision (hx) 01/26/2017 AD GARCIA DIRECTIVE Health Care Decision (hx) 01/26/2017 AD GARCIA DIRECTIVE Health Care Decision (hx) 01/26/2017 AD GARCIA DIRECTIVE Health Care Decision (hx) 01/26/2017 AD GARCIA DIRECTIVE Health Care Decision (hx) 01/26/2017 AD GARCIA DIRECTIVE Health Care Decision (hx) 01/26/2017 AD GARCIA DIRECTIVE Health Care Decision (hx) 01/26/2017 AD GARCIA DIRECTIVE Health Care Decision (hx) 01/26/2017 AD GARCIA DIRECTIVE Health Care Decision (hx) 01/26/2017 AD GARCIA DIRECTIVE Health Care Decision (hx) 01/26/2017 AD GARCIA DIRECTIVE Health Care Decision (hx) 01/26/2017 AD GARCIA DIRECTIVE Health Care Decision (hx) 01/26/2017 AD GARCIA DIRECTIVE Health Care Decision (hx) 01/26/2017 AD GARCIA DIRECTIVE Health Care Decision (hx) 01/26/2017 AD GARCIA DIRECTIVE Health Care Decision (hx) 01/26/2017 AD GARCIA DIRECTIVE Health Care Decision (hx) 01/26/2017 AD GARCIA DIRECTIVE Health Care Decision (hx) 01/26/2017 AD GARCIA DIRECTIVE Health Care Decision (hx) 01/26/2017 AD GARCIA DIRECTIVE Health Care Decision (hx) 01/26/2017 AD GARCIA DIRECTIVE Health Care Decision (hx) 01/26/2017 AD GARCIA DIRECTIVE Health Care Decision (hx) 01/26/2017 AD GARCIA DIRECTIVE Health Care Decision (hx) 01/26/2017 AD GARCIA DIRECTIVE Health Care Decision (hx) 01/26/2017 AD GARCIA DIRECTIVE Health Care Decision (hx) 01/26/2017 AD GARCIA DIRECTIVE Health Care Decision (hx) 01/26/2017 AD GARCIA DIRECTIVE Health Care Decision (hx) 01/26/2017 AD GARCIA DIRECTIVE Health Care Decision (hx) 01/26/2017 AD GARCIA DIRECTIVE Health Care Decision (hx) 01/26/2017 AD GARCIA DIRECTIVE Health Care Decision (hx) 01/26/2017 AD GARCIA DIRECTIVE Health Care Decision (hx) 01/26/2017 AD GARCIA DIRECTIVE Health Care Decision (hx) 01/26/2017 AD GARCIA DIRECTIVE Health Care Decision (hx) 01/26/2017 AD GARCIA DIRECTIVE Health Care Decision (hx) 01/26/2017 AD GARCIA DIRECTIVE Health Care Decision (hx) 01/26/2017 AD GARCIA DIRECTIVE Health Care Decision (hx) 01/26/2017 AD GARCIA DIRECTIVE Health Care Decision (hx) 01/26/2017 AD GARCIA DIRECTIVE Health Care Decision (hx) 01/26/2017 AD GARCIA DIRECTIVE Health Care Decision (hx) 01/26/2017 AD GARCIA DIRECTIVE Health Care Decision (hx) 01/26/2017 AD GARCIA DIRECTIVE Health Care Decision (hx) 01/26/2017 AD GARCIA DIRECTIVE Health Care Decision (hx) 01/26/2017 AD GARCIA DIRECTIVE Health Care Decision (hx) 01/26/2017 AD GARCIA DIRECTIVE Health Care Decision (hx) 01/26/2017 AD GARCIA DIRECTIVE Care Teams Public Health Veterinarian Relationship Specialty Start Date End Date Jerri Leija NP [address] [place], [place] [address] [address] PCP - General 11/13/22
== END 2025-03-19 11:45 | disposition home or self-care (01) ==
LOC: HO.XRAY 11:44
PROVIDERS: PCP Nurse Practitioner Primary Care; Visit Provider Hospitalist
DX: J43.2 Centrilobular emphysema (principal)
CPT/HCPCS: 71046

== ENCOUNTER → 2025-03-19 11:57 | Outpatient (BNV) | payer MEDICARE, SELFPAY | PROVIDERS: PCP Nurse Practitioner Primary Care; Visit Provider Radiology Diagnostic Radiology | DX: R91.8 Other nonspecific abnormal finding of lung field (principal) | CPT/HCPCS: 71046 ==

== ENCOUNTER 2025-04-28 08:22 | Outpatient (AMB) | payer MEDICARE, SELFPAY ==
--- OUTSIDE RECORDS SUMMARY | 2018-02-27 08:29 | XMS_ITS | Encounter Summary ---
Author Organization [facility] Address [address] [place] [address] [place] [phone] Phone Care Team Providers Care President [employer] Name Role Phone Kristian Ewing MD Primary Care Provid er Encounter Details Date Type Department Care Team (Late st Contact Info) Description 02/27/2018 8:29 AM EDT Hospital Encounter [facility] [place] Cardiac US [address] [place] [address] Alireza Hayes MD 55 [facility] [address] [place] [address] [email or web address] Social History Tobacco Use Types Packs/Day Years Used Date Smoking Tobacco: Former Cigarettes Q uit: 02/27/2002 Smokeless Tobacco: Never Education Answer Date Recorded Are you interested in more education? Not on gilda e 02/01/2023 Are you concerned about learning? Not on file 02/01/2023 No 02/01/2023 No 02/01/2023 Digital Access Answer Date Recorded No 03/02/2023 No 03/02/2023 No 03/02/2023 Reliable internet access at home? Not on file 03/02/2023 Device with a working camera? Not on file Comments Unknown Sex and Gender Information Value Date Recorded Sex Assigned at Not on file Legal Sex Female 2:22 PM EST Gender Identity Not on file Sexual Orientation Not on file documented as of this encounter Plan of Treatment Not on file documented as of this encounter Procedures Procedure Name Priority Date/Time Associated Diagnosis Comments INTRA-PROCEDURAL ECHO TRANSESOPHAGEAL TAVR Routine 02/27/2018 2:38 PM EDT Paroxysmal atrial fibrillation documented in this encounter Results * Intra-procedural Echo Transesophageal (MILLIE) TAVR (02/27/2018 2:38 PM EDT) Body Surface Area 1.8 m2 Anatomical Region Laterality Modality Heart Ultrasound Narrative 02/28/2018 7:56 AM EDT Under MILLIE and ICE guidance, the atrial septum was crossed with a guidewire. A catheter was advanced over the wire and into the left upper pulmonary vein, followed by repositioning into the left atrial appendage. A 14F delivery catheter containing a 24mm Watchman left atrial appendage occluder was then positioned within the proximal portion of the left atrial appendage and deployed under MILLIE guidance. Following deployment, the prosthesis appeared well seated. After release, there is no evidence of residual flow visualized by color Doppler around (along the Perimeter). After confirmation of proper device placement, the delivery catheter was removed. The post deployment maximal diameter of the device ranged from 17-20mm. There was no thrombus noted. The pericardial fluid in the transverse sinus remained unchanged. There was no pericardial effusion. General Findings The image quality was good (2). Multiplane, Color flow Doppler, Spectral Doppler and 3D imaging used in the evaluation. Status post: LA appendage procedure. Meds reconciled and reviewed (see chart). Consent was obtained from: patient Consent was obtained by: BRANNON TIRADO Probe-placing MD: BRANNON TIRADO Image acquisition MD: JERONIMO DELEON Image acquisition MD: Echo Attending: Dr Andres Ji. Make and Model: [id number] Type of sedation: General Anesthesia Sedation administered by: Cardiac Anesthesia Patient tolerated the procedure well. No adverse reaction to medication was noted. No complications observed during the procedure. There were no probe complications noted. Left Ventricle - Pre Left ventricular systolic function is normal. Left Atrium - Pre There is no spontaneous echo contrast. No thrombus is noted in the left atrial body or appendage. The LA appendage dimensions are : 0 degrees 17x 21mm, 45 degrees 14 x 24mm, 90 degrees 19x 28mm, 135 degrees 20x 27mm. Aortic Valve - Pre There are irregular echoes along the aortic wall consistent with atheroma. Interatrial Septum - Pre The interatrial septum appears thickened consistent with lipomatous hypertrophy (normal variant). There is no evidence of a patent foramen ovale by Doppler. Pericardium - Pre There is evidence of epicardial fat. There is a localized pericardial effusion in the transverse sinus. us Alireza Hayes MD CV ECHO ORDERABLES Final Res ult documented in this encounter Visit Diagnoses Diagnosis Paroxysmal atrial fibrillation Atrial fibrillation documented in this encounter Care Teams President [employer] Relationship Specialty Start Date End Date Kirstian Ewing MD [address] [place] [address] PCP - General Internal Medicine 10/22/17 documented as of this encounter Additional Source Comments The information contained in this document represents components of the legal health record. It is not the complete legal health record.[facility]
--- OUTSIDE RECORDS SUMMARY | 2025-04-22 09:42 | XMS_ITS | Encounter Summary ---
Author Organization [facility] Address [address] [place] [address] Care Team Providers Care Residence Supervisor Name Role Phone Jerri Leija NP Primary Care Provider [phone] Reason for Referral * Imaging (Routine) - Authorized Specialty Diagnoses / Procedures Referred By Contac t Referred To Contact Radiology Diagnoses Lumbar back pain Procedures NM Bone/Joint Scan Spect CT Lorenzo Thornton MD [address] [place] [address] Phone: tel: fax: [address] [address] Phone: tel: Referral ID Status Reason Start Date Expiration Date V isits Requested Visits Authorized [id number] Authorized 04/21/2025 04/21/2026 2 2 Reason for Visit * Imaging (Routine) - Authorized Specialty Diagnoses / Procedures Referred By Contac t Referred To Contact Radiology Diagnoses Lumbar back pain Procedures NM Bone/Joint Scan Spect CT Lorenzo Thornton MD [address] [place] [address] Phone: tel: fax: [address] [address] Phone: tel: Referral ID Status Reason Start Date Expiration Date V isits Requested Visits Authorized [id number] Authorized 04/21/2025 04/21/2026 2 2 Encounter Details Date Type Department Care Team (Latest Contact Info) Description 04/22/2025 9:42 AM EDT Hospital Encounter [facility] Nuclear Medicine [address] [place] [address] Lumbar back pain Social History Tobacco Use Types Packs/Day Years Used Date Smoking Tobacco: Former Cigarettes Smokeless Tobacco: Never Alcohol Use Standard Drinks/Week Comments Not Currently 0 (1 standard drink = 0.6 oz pur e alcohol) Comments No Sex and Gender Information Value Date Recorded Sex Assigned at Female 04/21/2025 3:29 PM EDT Legal Sex Female 11:56 AM EST Gender Identity Female 04/21/2025 3:29 PM EDT Sexual Orientation Not on file documented as of this encounter Plan of Treatment Upcoming Encounters Date Type Department Care Team (Late st Contact Info) Description 06/17/2025 10:30 AM EDT Ancillary Procedure [facility] [address] [facility] [address] [place] [address] documented as of this encounter Procedures Procedure Name Priority Date/Time Associated Diagnosis Comments NM BONE/JOINT SCAN SPECT CT Routine 04/22/2025 2:20 PM EDT Lumbar back pain documented in this encounter Results * NM Bone/Joint Scan Spect CT (04/22/2025 2:20 PM EDT) Anatomical Region Laterality Modality Nuclear Medicine 04/27/2025 10:5 5 AM EDT Impressions 04/27/2025 12:10 PM EDT Please note the transitional thoracolumbar anatomy as detailed above. Activity at the T12 level is most likely degenerative however if there is clinical concern for acute compression fracture consider MRI for further evaluation. -------- FINAL REPORT -------- Dictated By: Karina Beltran Dictated Date: 04/27/2025 10:55 ET Assigned Physician: Karina Beltrna Reviewed and Electronically Signed By: Karina Beltran Signed Date: 04/27/2025 12:10 ET Workstation ID: [id number] Transcribed By: Self Edit Transcribed Date: 04/27/2025 10:55 ET Narrative 04/27/2025 12:10 PM EDT EXAM PERFORMED: Bone SPECT REASON FOR EXAM: Back pain with concern for acute lumbar compression fracture COMPARISON: Outside CT scan of the lumbar spine from March 23, [address] scan of the abdomen and pelvis from November 12, [address] from November 07, 2023 reviewed for vertebral anatomy. RADIOISOTOPE: 25.2 mCi of Tc99m MDP TECHNIQUE: SPECT imaging of the spine was performed about 2 hours after administration of Tc 99m MDP. Imaging obtained from the upper thoracic region to the sacrum. FINDINGS: Transitional thoracolumbar vertebral anatomy noted. The level of the rudimentary ribs will be referred to as T13. 13 paired ribs are noted on November 07, 2023 chest CTA including the rudimentary level. Mild L5 and L1 compression deformities are unchanged without increased activity. Similar T6 and T8 compression fractures with minimal activity inferiorly at the T6 level. Focal increased activity noted towards the left side at the L4-L5 and minimal activity at the L5-S1 facet joint. Grade 1 anterolisthesis of L4 on L5 and L5 on S1, unchanged. Focal activity noted anteroinferiorly at the T12 level with mild linear activity towards the left side of the vertebral body. There is minimal decrease in height of the T12 vertebral body when compared to chest CTA from November 07, 2023. Focal intense activity anteriorly along the right 6th rib corresponds to nondisplaced rib fracture. Procedure Note Karina Beltran MD - 04/27/2025 EXAM PERFORMED: Bone SPECT REASON FOR EXAM: Back pain with concern for acute lumbar compressionfracture COMPARISON: Outside CT scan of the lumbar spine from March 23, 2025reviewed. Remote CT scan of the abdomen and pelvis from November 12eviewed. Chest CT from November 07, 2023 reviewed for vertebral anatomy. RADIOISOTOPE: 25.2 mCi of Tc99m MDP TECHNIQUE: SPECT imaging of the spine was performed about 2 hours afteradministration of Tc 99m MDP. Imaging obtained from the upper thoracicregion to the sacrum. FINDINGS: Transitional thoracolumbar vertebral anatomy noted. The level ofthe rudimentary ribs will be referred to as T13. 13 paired ribs are notedon November 07, 2023 chest CTA including the rudimentary level. Mild L5 and L1 compression deformities are unchanged without increasedactivity. Similar T6 and T8 compression fractures with minimal activityinferiorly at the T6 level. Focal increased activity noted towards the left side at the L4-L5 andminimal activity at the L5-S1 facet joint. Grade 1 anterolisthesis of L4on L5 and L5 on S1, unchanged. Focal activity noted anteroinferiorly at the T12 level with mild linearactivity towards the left side of the vertebral body. There is minimaldecrease in height of the T12 vertebral body when compared to chest CTAfrom November 07, 2023. Focal intense activity anteriorly along the right 6th rib corresponds tonondisplaced rib fracture. IMPRESSION: Please note the transitional thoracolumbar anatomy as detailed above. Activity at the T12 level is most likely degenerative however if there isclinical concern for acute compression fracture consider MRI for furtherevaluation. -------- FINAL REPORT -------- Dictated By: Karina Beltran Dictated Date: 04/27/2025 10:55 ET Assigned Physician: Karina Beltran Reviewed and Electronically Signed By: Karina Beltran Signed Date: 04/27/2025 12:10 ET Workstation ID: [id number] Transcribed By: Self Edit Transcribed Date: 04/27/2025 10:55 ET [facility] Final Result documented in this encounter Visit Diagnoses Diagnosis Lumbar back pain Lumbago Encounter for adjustment or management of cardiac device documented in this encounter Administered Medications Inactive Administered Medications - up to 3 most recent administrations Medication Order MAR Action Action Date Dose Rate Site TC-99M medronate radio-isotope injection 25.2 millicurie 25.2 millicurie, intravenous, Once in imaging, Starting on Cori 04/22/25 at 1035, For 1 dose Given 04/22/2025 10:36 AM EDT 25.2 millicuries documented in this encounter Orders Medications Ordered That Douglas ht Not Have Been Administered Count Last Ordered Date First Ordered Date TC-99M medronate radio-isoto pe injection 25.2 millicurie 1 04/22/2025 documented in this encounter Care Teams Residence Supervisor Relationship Specialty Start Date End Date Jerri Leija NP [address] [facility] [place] [address] PCP - General 11/13/22 documented as of this encounter
[2025-04-28 08:34] VITALS: BP 162/54; PULSE 64; O2SAT 94; BMI 29.8
--- NOTE | 2025-04-28 08:34 | A.OFFVIS_ITS ---
Vital Signs 04/28/25 08:34 Height 5 ft 2 in Weight 163 lb 2.273 oz BMI 29.8 BP 162/54 H Blood Pressure Location Lt brachial Position Sitting Pulse 64 Pulse Source Pulse Oximeter Pulse Oximetry (%) 94 Oxygen Delivery Method Room Air Intake Visit Reasons: increased shortness of breath Feather Mixer Required: No Accompanied by: Self / Same As Patient Allergies acetaminophen (From Percocet) Adverse Reaction (Severe, Verified 04/28/25 08:39) Vomiting aspirin (From Percodan) Adverse Reaction (Severe, Verified 04/28/25 08:39) Vomiting oxycodone (From Percocet) Adverse Reaction (Severe, Verified 04/28/25 08:39) Vomiting HPI Comments Details: The patient is a 79 year woman former smoker with a 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 The patient has been on Incruse for many years. She has also been on prednisone. Her last CT scan of the chest that we have on record was done at [facility] back in 2021 demonstrating extensive emphysema in addition to that does have evidence of compression fractures. She does not complain of significant pain. Although she is aware that the prednis one will potentially affect her healing and potentially cause worsening of the osteopenia and osteoporosis predisposing her to more fractures. The her last PFTs occurred back in 2020 with an FEV1 of 0.9 L which is around 60% predicted consistent moderate to severe COPD. The patient does have oxygen that she uses with activity. She also has a CPAP that she uses at nighttime. 02/06/2023 the patient is here for a pulmonary follow-up visit. The patient doing a lot better on the Trelegy inhaler. She still using the oxygen although difficult to carry. We did do a conserving device trial she did good on 3 L pulse. Will try to get a portable oxygen concentrator in order for her to have better portability outside the home. In the meantime, she will continue with the B cylinders the. We did review her PFTs demonstrating severe COPD in addition to mild restrictive lung disease. She continues to use her CPAP. However, she is not tolerating the fullface mask. I did have a nasal N30i small mask that she tried in the like. I will send a prescription to her [facility] company as well. 11/22/2023 the patient is here for a pulmonary follow-up visit. She continues to do fairly well on the Trelegy inhaler. She does use it every day. She also has a rescue inhaler that she has not required. The patient is having issues with shortness breath. She does have the oxygen tanks but they are very heavy for her. Is hard for her to have any portability outside of the home with the oxygen tanks. We had requested a portable oxygen concentrator for her. She does qualify for the conserving device. We did requalify her with a 6 minute walk test today and again she did require 2 L pulse to maintain a pulse ox of 92%. Will go ahead and request from her [employer] company the POC for better portabil ity. In the meantime the patient continues to use her CPAP at nighttime. With her underlying COPD and chronic respiratory failure will go ahead and check a blood gas to see if we need to consider noninvasive ventilation. Her last CT scan was from June 2023 with emphysematous changes. no pulmonary emboli appreciated on the CT scan. 03/25/2024 the patient is here for a pulmonary follow-up visit. She continues to do very well on the Trelegy inhaler. He has been very affecting beneficial. She has not required her rescue inhaler often. Typically less than 2 times a week. She also has been using her oxygen with the conserving device with activity. And she has her concentrator and home. She does use the oxygen with CPAP at nighttime. The therapy again has been effective. We did review her blood work that she had back in November. It was noted that she was anemic and also her potassium is critically low. She has not had any additional blood work since then. We had given her supplementation. I did give her paperwork for labs which will mail to her house in order for her to get blood work at [facility]. There is her primary care doctor will have full access to her blood work as well. Make sure that she has not further new making make sure the potassium is corrected. But clinically she feels very well. Will follow-up in 6 months. If she has not difficulties prior to that she will call for an earlier assessment. 07/31/2024 the patient is here for a pulmonary follow-up visit. She has been hospitalized times since we spoke. Overall she is doing better from a cardiac standpoint. The patient now needs to have a hernia repair for ventral hernia. This is going to be scheduled at [facility]. From a respiratory status she is doing well. She had been on Trelegy but now is extremely expensive likely because of the donut hole. She continues use the oxygen. Although she has not been able to get a portable oxygen concentrator. She is traumatized because of the oxygen tanks specially when on 1 of the oxygen tanks fell down to the ground and made a significant amount of noise and now she has traumatized with the oxygen tanks that she does not want to leave her house with the portable oxygen tanks. She needs a portable oxygen concentrator to help her have better portability outside of the home. We did do another walking oximetry today. She did desaturate to 88% on room air with activity and the patient did respond to 2 L pulse with activity maintaining a pulse ox of 94% with activity which is reassuring. She does need a POC in order to stay active. Today she came in with a wheelchair because she has a hard time without the I will reach out to [facility] to explain to her the traumatize state that she has after the oxygen tank fell and therefore she can not use oxygen tanks for portability. She continues uses CPAP nighttime. The CPAP therapy continues to be affecting beneficial. Although the last 2 nights she has had nose bleeding she has not been able to use it. She is going to follow-up with ENT soon. She did need cautery sometime ago. For now she is using oxygen to sleep with. 03/16/2025 the patient is here for a pulmonary follow-up visit. She states that for the last few days her breathing has been gotten worse. Over the weekend she did take additional prednisone and also been doing the nebulizer treatments. She has felt better. Although she is still not her baseline. As far as medication changes recently she was taken off her Lasix 40 mg daily because her blood pressure was a little on the low side. She feels that that may be playing a role. I do believe she has gained some weight since stopping the Lasix and this is probably causing some vascular congestion. She does have some crackles on exam. Will have her get an x-ray. Meantime she is going to go back on the Lasix half dose and she is going to check her blood pressure with a blood pressure cuff she has not home. If her blood pressure still below 100 she can decrease it to half a tablet 3 times a week. But she needs to stay on some diuretic to improve her volume status minimize chest congestion and cardiac asthma. The patient also continues on prednisone he continues with respiratory therapy in her oxygen. If her x-ray is abnormal I will let her know. In the meantime she will call if her symptoms continue to persist. Will follow-up in 3-4 months. If she has any issues prior to that she will call for an earlier assessment. 04/28/2025 the patient is here for pulmonary follow-up visit. Overall she is doing okay although still having significant back pain. She is scheduled to see specialists for stabilizing her compression fracture. She continues to be on prednisone. She knows the prednisone can worsen the compression fractures. She actually was evaluated the beginning of the month of April at [facility] with worsening respiratory symptoms. She was discharged with an asthma exacerbation. She feels like her breathing is better although she feels very congested with yellowish phlegm. They did not give her any antibiotics. We did talk about chronic macrolide therapy however she states that she has had issues with azithromycin in the past where she developed atrial fibrillation. Therefore will hold off on that and will give her some Augmentin since she seems to tolerate it and she can not take that for 10 days. In addition to that she is going to taper down the prednisone. The patient does have evidence of chronic bronchitis therefore, she will be a good candidate for Daliresp. Will start her on a small dose of 250 mcg with the hope of increasing it to the therapeutic dose with her follow-up. If she does not tolerate the Daliresp we can also consider Ohtuvayre. [facility] Medical History (Updated 03/22/25 @ 09:08 by Shon Gunderson MD) Hypokalemia Anemia NAKIA on CPAP Compression fracture of body of thoracic vertebra Chronic respiratory failure COPD (chronic obstructive pulmonary disease) Dependence on nocturnal oxygen therapy BRENDA (iron deficiency anemia) (HFpEF) heart failure with preserved ejection fraction Aortic stenosis GERD (gastroesophageal reflux disease) Hypertension Atrial fibrillation Surgical History (Updated 12/06/22 @ 13:47 by Jerri Noguera PA-C) Presence of Watchman left atrial appendage closure device S/P cryoablation of arrhythmia Social History Patient Tobacco Use Status: Former Tobacco user Tobacco use type: Cigarette Years Smoked: 20+ Years Review of Systems Const Reports daytime sleepiness and Denies fever(s) Eyes Denies change in vision ENT Denies change in voice Card Denies chest pain and Reports dyspnea on exertion Resp Reports chest congestion, Reports cough, Reports dyspnea on exertion and Reports wheezing GI Reports no additional complaints Musc Reports myalgias Skin/Breast Denies rash Neuro Reports no additional complaints Martin/Lymph Denies easy bruising and Denies lymphadenopathy Aller/Immun Reports wheezing Physical Exam Vital Signs: Last Vital Signs Pulse 64 04/28/25 08:34 BP 162/54 H 04/28/25 08:34 Pulse Ox 94 04/28/25 08:34 Oxygen Delivery Method Room Air 04/28/25 08:34 BMI result Body Mass Index 29.8 Const General: comfortable HEENT Head: Yes normocephalic Neck Neck: Yes supple Chest Chest palpation & inspection: normal inspection of the chest Resp Effort & Inspection: normal respiratory effort Auscultation: crackles and diminished lung sounds Cardio Rate: regular rate Rhythm: regular rhythm Heart sounds: S1 normal heart sound present and S2 normal heart sound present GI Palpation (GI): Soft to palpation Skin General skin exam: no rashes or lesions noted Extrem General: Yes no clubbing, cyanosis or edema Assessment & Plan Assessment & Plan (1) COPD (chronic obstructive pulmonary disease): Code(s): J44.9 - Chronic obstructive pulmonary disease, unspecified Category: Medical Qualifiers: COPD type: emphysema Emphysema type: centrilobular Qualified Code(s): J43.2 - Centrilobular emphysema (2) Chronic respiratory failure: Code(s): J96.10 - Chronic respiratory failure, unspecified whether with hypoxia or hypercapnia Category: Medical Qualifiers: Respiratory failure complication: hypoxia Qualified Code(s): J96.11 - Chronic respiratory failure with hypoxia (3) Compression fracture of body of thoracic vertebra: Code(s): S22.000A - Wedge compression fracture of unspecified thoracic vertebra, initial encounter for closed fracture Category: Medical (4) NAKIA on CPAP: Code(s): G47.33 - Obstructive sleep apnea (adult) (pediatric); Z99.89 - Dependence on other enabling machines and devices Category: Medical (5) Anemia: Code(s): D64.9 - Anemia, unspecified Category: Medical Qualifiers: Anemia type: unspecified type Qualified Code(s): D64.9 - Anemia, unspecified Plan continue Trelegy 200 BHARATI as needed continue APAP Bloodwork POC oxygen, 3L pulse with activity, will benefit from a portable oxygen concentrator (POC) for better portability outside of the home. decrease Prednisone 10mg->5mg daily every other day start Augmentin Start Dalireso 250mcg F/U 4 months Medications: New roflumilast (Daliresp) 250 mcg PO DAILY 30 tabs 11RF 30 days J44.9 - Chronic obstructive pulmonary disease, unspecified amoxicillin-pot clavulanate 875-125 mg 1 tab PO BID 20 tabs 0RF 10 days Coding Level of Care Code Est Pt Level 4 (93086) Complex EM visit Add On G2211 Diagnoses Centrilobular emphysema J43.2 COPD type: emphysema Emphysema type: centrilobular Chronic respiratory failure with hypoxia J96.11 Respiratory failure complication: hypoxia Compression fracture of body of thoracic vertebra S22.000A NAKIA on CPAP G47.33; Z99.89 Anemia, unspecified type D64.9 Anemia type: unspecified type Time Spent (min) 17
== END 2025-04-28 09:01 | disposition home or self-care (01) ==
LOC: HO.HPS 08:23
PROVIDERS: PCP Nurse Practitioner Primary Care; Visit Provider Hospitalist
DX: J43.2 Centrilobular emphysema (principal); J96.11 Chronic respiratory failure with hypoxia; S22.000A Wedge compression fracture of unspecified thoracic vertebra, initial encounter for closed fracture; G47.33 Obstructive sleep apnea (adult) (pediatric); Z99.89 Dependence on other enabling machines and devices; D64.9 Anemia, unspecified
CPT/HCPCS: 99214; G2211

== ENCOUNTER → 2025-04-28 08:22 | Outpatient (BNVA) | payer MEDICARE, SELFPAY | PROVIDERS: PCP Nurse Practitioner Primary Care; Visit Provider Hospitalist | DX: J43.2 Centrilobular emphysema (principal); J96.11 Chronic respiratory failure with hypoxia; G47.33 Obstructive sleep apnea (adult) (pediatric); D64.9 Anemia, unspecified; S22.000D Wedge compression fracture of unspecified thoracic vertebra, subsequent encounter for fracture with routine healing; Z79.52 Long term (current) use of systemic steroids; Z99.89 Dependence on other enabling machines and devices | CPT/HCPCS: 99212 ==

== ENCOUNTER 2025-06-11 12:56 | Outpatient (REF) | payer MEDICARE, SELFPAY ==
--- OUTSIDE RECORDS SUMMARY | 2018-02-27 08:29 | XMS_ITS | Encounter Summary ---
Author Organization [facility] Address [address] [place] [address] [place] [phone] Phone Care Team Providers Care Computer Programming Manager Name Role Phone Kristian Ewing MD Primary Care Provid er Encounter Details Date Type Department Care Team (Late st Contact Info) Description 02/27/2018 8:29 AM EDT Hospital Encounter [facility] Cardiac US [address] [place] [address] Alireza Hayes MD 55 [facility] [address] [place] [address] [email or web address] [email or web address] Social History Tobacco Use Types Packs/Day Years [...] Attending: Dr Andres Ji. Make and Model: [id number] Type of sedation: General Anesthesia Sedation administered [...] fibrillation documented in this encounter Care Teams Computer Programming Manager Relationship Specialty Start Date End Date Kristian Ewing MD [address] [place] [address] PCP - General Internal Medicine 10/22/17 documented as of this encounter Additional Source Comments The information contained in this document represents components of the legal health record. It is not the complete legal health record.[facility]
--- NOTE | ~2025-06-11 | CT_ITS ---
EXAMINATION: CT CHEST WITHOUT CONTRAST CLINICAL INFORMATION: Abnormal chest radiograph. Emphysema. COMPARISON: 04/18/2025 chest radiograph. TECHNIQUE: Multidetector volumetric CT imaging of the chest was done. Axial MIP volume rendering provided. Sagittal and coronal reformatted images were obtained. This CT examination was performed using dose optimization techniques as appropriate, variously including the following: *Automated exposure control *Adjustment of mA and/or kV according to patient size (this includes techniques or standardized protocols for targeted exams where dose is matched to indication/reason for exam; i.e. extremities or head) *Use of iterative reconstruction technique FINDINGS: LUNGS: There is moderate centrilobular emphysema with upper lobe predominance. There is mild biapical scarring. There is patchy groundglass attenuation in the subpleural regions of both lower lobes right greater than left, with associated discoid type atelectasis/reticular opacities. Findings appear to represent inflammatory and/or infectious etiology. There is mild bronchiectasis of the small airways particularly in the lower lobes. There is diffuse small airway thickening consistent with chronic bronchitis. There is scarring in the lingula and right middle lobe. There is no suspicious pulmonary nodule evident. There are a few scattered calcified granulomata present most numerous in the upper lobes/apices. There is no consolidation. There is no effusion or pneumothorax. MEDIASTINUM: There is moderate cardiomegaly. There is an aortic valve replacement present (TAVR). There is lipomatous infiltration of the interatrial septum. There is a left atrial appendage occlusion device in place. There is no pericardial effusion. There is dense calcification of the mitral annulus. Moderate to heavy calcific atheromatous disease of the aorta is present as well as the great vessels, however there is no aneurysm. Heavy calcification of the ostia of the left common carotid and brachiocephalic arteries. No lymphadenopathy or mass. A reactive appearing precarinal lymph node is present. The thyroid is normal in appearance. There is a small type I hiatus hernia. Esophagus is otherwise normal. CORONARY ARTERY CALCIFICATION: Moderate to heavy three-vessel coronary calcification. AXILLA/CHEST WALL: No masses or lymphadenopathy present. UPPER ABDOMEN: Cholecystectomy. Small type I hiatus hernia. Remainder the imaged upper abdominal contents appear normal. OSSEOUS STRUCTURES: There is osteopenia. There are spinal degenerative changes, mild to moderate. There are chronic compression deformities of T6, T8, and L2 noted. There is a bone island in L1. There is no suspicious lytic or blastic bone lesion evident. There is increased thoracic AP diameter. CT/CT chest wo IV con IMPRESSION: 1. Moderate centrilobular emphysema with upper lobe predominance. 2. Patchy groundglass and reticular opacities in the lower lobes right greater than left, likely inflammatory and/or infectious in etiology. 3. Diffuse small airway thickening and mild bronchiectasis. Findings are in keeping with chronic bronchitis. 4. Moderate cardiomegaly. TAVR and left atrial appendage occlusion device. Lipomatous infiltration of the intra-atrial septum. Moderate to heavy coronary calcifications. 5. Additional ancillary findings as detailed in the body of the report. Electronically signed by: Phil Schneider MD 06/11/2025 01:33 PM EDT
--- OUTSIDE RECORDS SUMMARY | 2025-06-11 13:09 | XMS_ITS | Clinical Summary ---
Author Organization [facility] Address [address] [place] [id number] Phone Care Team Providers Care Rental Sales Associate Name Role Phone Kristian Ewing MD Primary Care Provid er Allergies No known active allergies Medications losartan (COZAAR) 25 MG tabletIndicati ons:hypertensi on Take 25 mg by mouth daily. Indications: hypertension Active furosemide (LASIX) 20 MG tablet Take 20 mg by mouth daily. Active raNITIdine (ZANTAC) 300 MG tablet Take 300 mg by mouth nightly. Active omeprazole (PRILOSEC) 20 MG tablet Take 20 mg by mouth daily. Active albuterol 90 mcg/actuation inhaler Inhale 2 puffs into the lungs every 6 (six) hours as needed for wheezing. Active fluticasone-sa lmeterol (ADVAIR DISKUS) 250-50 mcg/dose DISKUS Inhale 1 puff into the lungs 2 (two) times a day. Active dilTIAZem (CARDIZEM CD) 360 MG 24 hr capsule Take 360 mg by mouth daily. Active potassium chloride SA (K-DUR,KLOR-CO N) 20 MEQ ER tablet Take 20 mEq by mouth daily. Active ferrous sulfate 325 mg (65 mg knik iron) tablet Take 350 mg by mouth daily with breakfast. Active ascorbic acid, vitamin C, (VITAMIN C) 500 MG tablet Take 500 mg by mouth daily. Active tiotropium (SPIRIVA HANDIHALER) 18 mcg inhalation capsule Inhale 18 mcg into the lungs daily. Active predniSONE (DELTASONE) 20 MG tablet Take 40 mg by mouth daily as needed. Active octreotide (SANDOSTATIN) 100 mcg/mL Soln Inject 1 mL (100 mcg total) under the skin 2 (two) times a day. 84 mL 8 Active insulin syringe-needle U-100 1 mL 25 gauge x 5/8 Syrg 1 each by Miscellaneous route 2 (two) times a day. 100 each 8 Active aspirin 81 mg chewable tablet Take 1 tablet (81 mg total) by mouth daily. 180 tablet 3 8 Active clopidogrel (PLAVIX) 75 mg tablet Take 1 tablet (75 mg total) by mouth daily. 45 tablet 8 Active Active Problems Problem Noted Date Diagnosed Date Atrial fibrillation 02/27/2018 Social History Tobacco Use Types Packs/Day Years [...] on file Sexual Orientation Not on file Last Filed Vital Signs Vital Sign Reading Time Taken Comments Blood Pressure 122/76 04/07/2018 1:25 PM EDT Pulse 75 04/07/2018 1:25 PM EDT Temperature 37.1 C (98.8 F) 02/28/2018 8:35 AM EDT Respiratory Rate 16 04/07/2018 12:26 PM EDT Oxygen Saturation 94% 04/07/2018 12:35 PM EDT Inhaled Oxygen Concentration - - Weight 80.7 kg (178 lb) 04/07/2018 1:25 PM EDT Height 154.9 cm (5' 1 ) 04/07/2018 1:25 PM EDT Body Mass Index 33.63 04/07/2018 1:25 PM EDT Plan of Treatment Health Maintenance Due Date Last Done Comments Adult Td,Tdap Booster 1946 LIPID PANEL 1946 DEPRESSION SCREENING 1958 SMOKING Hx and SMOKELESS TOBACCO SCREENING 1959 HEPATITIS C SCREENING 1964 ZOSTER VACCINES (1 of 2) 1996 OSTEOPOROSIS SCREENING INITI AL (ONE-TIME) 2011 CREATININE LEVEL 02/28/2019 02/28/2018 POTASSIUM LEVEL 02/28/2019 02/28/2018 RSV VACCINE (1 - 1-dose 75+ series) 2021 INFLUENZA VACCINE (#1) 2025 COVID-19 VACCINE (3 - 2024-2 6 season) 2025 12/08/2020, 11/17/2020 PNEUMOCOCCAL VACCINES (50+ years) Completed 09/06/2017, 09/04/2016 HEPATITIS A VACCINES Aged Out No long er eligible based on patient's age to complete this topic HIB VACCINES Aged Out No longer eligi ble based on patient's age to complete this topic MENINGOCOCCAL VACCINES (ACWY) Aged Out No longer eligible based on patient's age to complete this topic MENINGOCOCCAL VACCINES (B) Aged Out N o longer eligible based on patient's age to complete this topic Medical Devices Implanted Type Area Rifle Case Repairer Device Identifier Shelf Expiration Date Model / Serial / Lot Watchman Kaylie Closure [id number] Us - [id number] Implanted:Qty: 1 on 02/27/2018 by Alireza Hayes MD at [facility] KAYLIE Occluder Left: [employer] RAVEN 09/19/2020 [id number] / / [id number] Procedures Procedure Name Priority Date/Time Associated Diagnosis Comments BASIC METABOLIC PANEL Routine 02/28/2018 6:25 AM EDT from Last 3 Months or Most Recently Relevant to Health Maintenance Results * (ABNORMAL) Basic metabolic panel (02/28/2018 6:25 AM EDT) SODIUM 139 135 - 145 mmol/L [facility] POTASSIUM 4.1 3.4 - 5.0 mmol/L [facility] CHLORIDE 102 98 - 108 mmol/L [facility] CO2 21(L) 23 - 32 mmol/L [facility] BUN 15 8 - 25 mg/dL [facility] CREATININE 0.81 0.60 - 1.50 mg/dL [facility] GLUCOSE 117(H) 70 - 110 mg/dL [facility] CALCIUM 8.7 8.5 - 10.5 mg/dL [facility] EGFR 73 >59 mL/min/1. 73m2 [facility] Comment:If patient is black, multiply result by 1.159. Estimated glomerular filtration rate calculated using the CKD-EPI equation. ANION GAP 16 3 - 17 mmol/L [facility] Blood 02/28/2018 6:25 AM EDT 02/28/2018 8:12 AM EDT us Alireza Hayes MD LAB BLOOD ORDERABLES Final R esult [address] [id number] from Last 3 Months or Most Recently Relevant to Health Maintenance Insurance HMO [place] [address] [place] [id number] [place], [place] [address] [place], [place] [id number] O O O Advance Directives For more information, please contact: [phone] (9AM - 5PM [facility], Saturday-Saturday) Documents on File Type Date Recorded Patient General Magistrate Expl anation Healthcare Proxy 03/04/2018 4:21 PM * Full Code (Presumed) (Latest Code Status on File) Date Activated Date Inactivated Comments 02/27/2018 4:07 PM 02/28/2018 3:04 PM Care Teams Rental Sales Associate Relationship Specialty Start Date End Date Kristian Ewing MD [address] [place] [id number] PCP - General Internal Medicine 10/22/17 Additional Source Comments The information contained in this document represents components of the legal health record. It is not the complete legal health record.[facility]
--- OUTSIDE RECORDS SUMMARY | 2025-06-11 13:09 | XMS_ITS | Encounter Summary ---
Author Organization [facility] Address [address] [place] [address] Phone Care Team Providers Care Farmworker [employer] Name Role Phone Kristian Ewing MD Primary Care Provid er Encounter Details Date Type Department Care Team (Late st Contact Info) Description 02/27/2018 [place] [facility] [facility] [address] [facility], Floor 1, [address] [place] [id number] Social History Tobacco Use Types Packs/Day Years Used Date Smoking Tobacco: Former Cigarettes Q uit: 02/27/2002 Smokeless Tobacco: Never Comments Unknown Sex and Gender Information Value Date Recorded Sex Assigned at Not on file Legal Sex Female 2:22 PM EST Gender Identity Not on file Sexual Orientation Not on file documented as of this encounter Plan of Treatment Not on file documented as of this encounter Visit Diagnoses Not on filedocumented in this encounter Care Teams [employer]worker [employer] Relationship Specialty Start Date End Date Kristian Ewing MD [address] [place] [address] PCP - General Internal Medicine 10/22/17 documented as of this encounter Additional Source Comments The information contained in this document represents components of the legal health record. It is not the complete legal health record.[facility]
--- OUTSIDE RECORDS SUMMARY | 2025-06-11 13:09 | XMS_ITS | Clinical Summary ---
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 30 each 11 4 09/14/20 25 Active omeprazole (PriLOSEC) [address] capsuleIndicati [...] each day. 527 g 2 5 Active potassium chloride (MICRO-K) 10 mEq CR capsule TAKE 1 CAPSULE BY MOUTH DAILY FOR 360 DAYS. 90 capsule 1 5 Active Active Problems Problem Noted Date Diagnosed Date Hypercholesterolemia 12/23/2024 Chronic bilateral low back pain with bilateral s ciatica 12/23/2024 Hx of atrioventricular node ablation 09/22/2024 Overview (09/22/2024): Status post AV node ablation and leadless ventricular pacemaker placement in June 2024. Follow-up capture thresholds and sensing are excellent. No pilot station conduction. Pacemaker 09/14/2024 Overview (09/22/2024): June 29, 2024 - implant of SJM leadless pacemaker(aveir) with AV node ablation at [facility] by Dr. Berg Assessment & Plan (09/14/2024 12:48 PM EST): Functioning well on EKG. Continue to monitor through device clinic at [facility]. S/p TAVR (transcatheter aort ic valve replacement), bioprosthetic 09/01/2024 Overview (09/01/2024): Successful TAVR using 29mm Evolute Fx plus on July 20, [address] Vogt at [facility]. No complications. Discharged with Aspirin monotherapy. [...] echocardiogram completed. Coronary artery disease invo lving pilot station coronary artery of pilot station heart without angina pectoris 09/01/2024 Overview (09/01/2024): [...] 01/23/2023 Acute respiratory failure wi th hypoxia ([facility] V24, [facility] V28) 01/04/2022 Chest pain 01/04/2022 (HFpEF) heart failure with p reserved ejection fraction ([facility] V24, [facility] V28) 01/04/2022 Overview (09/01/2024): July 2024 - [...] daily weights and medication compliance. Atrial flutter ([facility] V24, [facility] V28) 2020 Shortness of breath on exertion 08/17/2021 Assessment & Plan (09/14/2024 12:48 PM EST): Residual combination of anemia, COPD and deconditioning. We discussed risk reduction through lifestyle choices including healthy diet, routine exercise and weight management. Follow up with pulmonary at regular interval and participate in cardiac and pulmonary rehab. Asthma 01/02/2018 Supplemental oxygen dependent 01/02/2018 Emphysema/COPD ([facility] V24, [facility] V28) 2016 Hypertension 08/11/2017 Assessment & Plan (09/14/2024 12:48 PM EST): Controlled. Continue with furosemide and metoprolol. Atrial fibrillation ([facility] V24, [facility] V28) 0 06/12/2017 Overview (09/01/2024): Non-longstanding persistent [...] with discontinuation of sotalol after procedure - 2022 significant shortness of breath in setting [...] on chronic diastolic ( congestive) heart failure ([facility] V24, [facility] V28) 11/13/202209/01 Aortic stenosis 08/17/2021 09/01/2024 Overview (07/03/2024): Last Assessment & Plan: She does have moderate aortic stenosis which was also confirmed on MILLIE. Nothing to do at this time. Will continue to monitor. Likely minimally contributory to her dyspnea. Congestive heart failure (CH F) (CMS/HCC V24, CMS/HCC V28) 01/02/2018 09/01/2024 Encounters Date Type Department Care Team Description 05/06/2025 Telephone [facility] Cardiology [facility] [address] [place] [phone] Mariola Vogt MD 04/22/2025 1:15 PM EDT - 04/22/2025 11:59 PM EDT Hospital Encounter [facility] [address] [place] [phone] Discharge Disposition: Home or Self Care 04/22/2025 9:42 AM EDT - 04/22/2025 11:59 PM EDT Hospital Encounter [facility] [address] [place] [phone] Lumbar back pain Discharge Disposition: Home or Self Care 03/11/2025 11:30 AM EDT Office Visit [facility] [address] [place] [phone] Houston Cam MD Other constipation (Primary Dx); Hypotension, unspecified hypotension type from Last 3 Months Immunizations Name Administration [...] Medical History Medical History Date Comments A-fib ([facility] V24, [facility] V28) Acute respiratory failure with hypoxia ([facility] V24, [facility] V28) Asthma Anxiety NAKIA on CPAP Ventral hernia SOB (shortness of breath) Sciatica Multiple pulmonary nodules COPD (chronic obstructive pulmonary disease) ([facility] S/HCC V24, [facility] V28) CHF (congestive heart failure) ([facility] V24, [facility] V28) Acute pancreatitis Family History Medical History Relation Name Comments Emphysema Father CT at 74 Heart attack Maternal Grandmother Breast [...] PM EDT Sexual Orientation Not on file Obstetrics History [...] Care Team (Late st Contact Info) Description 07/14/2025 9:30 AM EDT Ancillary Procedure [facility] Cardiology [facility] [address] [place] [phone] 08/19/2025 12:30 PM EST Ancillary Procedure [facility] [address] [place] [address] 09/07/2025 11:10 AM EST Office Visit [facility] [address] [place] [address] Alex Abbott NP [address] [place] [address] [address] [place] [address] Health Maintenance Due Date Last Done Comments DTaP,Tdap,and Td Vaccines (1 - Tdap) 1965 Zoster Vaccines (1 of 2) 1996 Falls Risk Assessment 09/15/2022 Hepatitis C Screening 09/15/2022 Medicare Annual Wellness Visit 09/15/2022 Osteoporosis Screening (Bone Density Screening) 09/15/2022 Social Influencers of Health Screening 09/15/2022 Depression Screening 10/07/2024 COVID-19 Vaccine ( season) 2025 08/29/2024, 07/22/2023, 10/10/2022, Additional history exists Influenza Vaccine (#1) 2025 , 06/06/2024, 07/22/2023, Additional history exists Hypertension/CHF/CAD Annual BMP Blood Test 12/23/2025 12/23/2024, 08/19/2024, 05/06/2024, Additional history exists Cholesterol Screening (Lipid Panel) 12/23/2029 12/23/2024, 01/23/2023 Pneumococcal Vaccine: 50+ Years Completed 04/04/2022, 09/06/2017, 09/04/2016 RSV Immunization Adult Patients Completed 08/11/2023 HIB Vaccines Aged Out No longer eligi [...] this topic Medical Devices Implanted Type Area Fabrication Machine Operator Device Identifier Shelf Expiration Date Model / Serial / Lot Cardiac Pacemaker-06/08 Implanted: by Gonzales Berg MD (Quantity not on file) Cardiac Pacemaker Right: Heart [employer] CRMD++DNU+ABBT/ STJU Description:Leadless Avier V R Abbt-Stju Aveir Vr Lp [id number] -06/29/2024 Implanted: by Gonzales Berg MD (Quantity not on file) Cardiac Pacemaker Left: Chest [facility] [employer] [employer] [id number] / [id number] / Abbt-Stju Aveir Vr Lp [id number] Implanted: (Quantity not on file) Cardiac Pacemaker [employer] [employer] [employer] [id number] / [id number] / Procedures Procedure Name Priority Date/Time Associated Diagnosis Comments NM BONE/JOINT SCAN SPECT CT Routine 04/22/2025 2:20 PM EDT Lumbar back pain BASIC METABOLIC PANEL Routine 12/23/2024 11:40 AM EDT Chronic heart failure with preserved ejection fraction (CMS/HCC V24, CMS/HCC V28) LIPID PANEL WITH REFLEX TO DIRECT LDL Routine 12/23/2024 11:40 AM EDT Hypercholesterolemi a from Last 3 Months or Most Recently Relevant to Health Maintenance Results * NM Bone/Joint Scan Spect CT [...] Signed Date: 04/27/2025 12:10 ET Workstation ID: [id number] Transcribed By: Self Edit Transcribed Date: 04/27/2025 [...] Signed Date: 04/27/2025 12:10 ET Workstation ID: [id number] Transcribed By: Self Edit Transcribed Date: 04/27/2025 10:55 ET Lorenzo Thornton MD IM NM PROCEDURES Final Result * Lipid panel with reflex to direct LDL (12/23/2024 11:40 AM EDT) Cholesterol 157 0 - 200 mg/dL LAB CHEMISTRY METHOD 12/23/2024 3:43 PM EDT [facility] Triglycerides 122 0 - 150 mg/dL LAB CHEMISTRY METHOD 12/23/2024 3:43 PM EDT [facility] HDL 75 >=40 mg/dL LAB CHEMISTRY METHOD 12/23/2024 3:43 PM EDT [facility] LDL Calculated 58 0 - 100 mg/dL LAB CHEMISTRY METHOD 12/23/2024 3:43 PM EDT [facility] VLDL Cholesterol Tad 24.4 mg/dL LAB CHEMISTRY METHOD 12/23/2024 3:43 PM EDT [facility] Non HDL Chol. (LDL+VLDL) 82 <145 mg/dL LAB CHEMISTRY METHOD 12/23/2024 3:43 PM EDT [facility] Chol/HDL Ratio 2.1 0.0 - 4.4 LAB CHEMISTRY METHOD 12/23/2024 3:43 PM EDT [facility] Blood Venous blood specimen / Unknown Venipuncture / Unknown 12/23/2024 11:40 AM EDT 12/23/2024 11:43 AM EDT Jerri Leija COMMUTER TRAIN OPERATOR LAB BLOOD ORDERABLES Final Resu lt [facility] [address] [place] [address], [place] [phone] * Basic metabolic panel (12/23/2024 11:40 AM EDT) Sodium 136 133 - 145 mmol/L LAB CHEMISTRY METHOD 12/23/2024 3:40 PM EDT [facility] Potassium 4.1 3.5 - 5.5 mmol/L LAB CHEMISTRY METHOD 12/23/2024 3:40 PM EDT [facility] Chloride 100 96 - 110 mmol/L LAB CHEMISTRY METHOD 12/23/2024 3:40 PM EDT [facility] CO2 30 21 - 32 mmol/L LAB CHEMISTRY METHOD 12/23/2024 3:40 PM T [facility] Anion Gap 6 3 - 11 LAB CHEMISTRY METHOD 12/23/2024 3:40 PM EDT [facility] Glucose 98 70 - 100 mg/dL LAB CHEMISTRY METHOD 12/23/2024 3:40 PM EDT [facility] BUN 14 5 - 25 mg/dL LAB CHEMISTRY METHOD 12/23/2024 3:40 PM [facility] Creatinine 0.91 0.50 - 1.10 mg/dL LAB CHEMISTRY METHOD 12/23/2024 3:40 PM EDT [facility] eGFR 65 >=60 mL/min/1. 73m2 LAB CHEMISTRY METHOD 12/23/2024 3:40 PM EDT [facility] Comment:Calculation based on the Chronic Kidney Disease Epidemiology Collaboration (CKD-EPI) equation refit without adjustment for race. BUN/Creatinine Ratio 15.4 LAB CHEMISTRY METHOD 12/23/2024 3:40 PM T [facility] Calcium 9.2 8.5 - 10.5 mg/dL LAB CHEMISTRY METHOD 12/23/2024 3:40 PM EDT [facility] Blood Venous blood specimen / Unknown Venipuncture / Unknown 12/23/2024 11:40 AM EDT 12/23/2024 11:43 AM EDT us Jerri Leija NP LAB BLOOD ORDERABLES Final Resu lt [facility] [address] [place] [address], [place] [phone] from Last 3 Months or Most Recently Relevant to Health Maintenance Insurance [employer] MEDICARE ADVANTAGE Advance Directives Documents on File Type Date Recorded Patient Fact Checker Expl anation Health Care Decision (hx) 11/11/2023 [...] (hx) 01/26/2017 AD GARCIA DIRECTIVE Care Teams Final Rail Cutter Relationship Specialty Start Date End Date Jerri Leija NP [address] [facility] [place] [address] PCP - General 11/13/22
== END 2025-06-11 12:57 | disposition home or self-care (01) ==
LOC: HO.CT 12:56
PROVIDERS: PCP Nurse Practitioner Primary Care; Visit Provider Hospitalist
DX: R93.89 Abnormal findings on diagnostic imaging of other specified body structures (principal)
CPT/HCPCS: 71250

== ENCOUNTER → 2025-06-11 12:58 | Outpatient (BNV) | payer MEDICARE, SELFPAY | PROVIDERS: PCP Nurse Practitioner Primary Care; Visit Provider Radiology Diagnostic Radiology | DX: J43.2 Centrilobular emphysema (principal) | CPT/HCPCS: 71250 ==

== ENCOUNTER 2025-07-16 09:49 | Outpatient (AMB) | payer MEDICARE, SELFPAY ==
--- OUTSIDE RECORDS SUMMARY | 2018-02-27 08:29 | XMS_ITS | Encounter Summary ---
Author Organization [facility] Address [address] [place] [address] [place] [phone] Phone Care Team Providers Care Ampoule Inspector Name Role Phone Kristian Ewing MD Primary Care Provid er Encounter Details Date Type Department Care Team (Late st Contact Info) Description 02/27/2018 8:29 AM EDT Hospital Encounter [facility] [place] Cardiac US [address] [place] [address] Alireza Hayes MD [facility] [address] [place] [address] [email or web address] Social History Tobacco Use Types [...] Attending: Dr Andres Ji. Make and Model: [id number] Type of sedation: General Anesthesia Sedation administered [...] fibrillation documented in this encounter Care Teams Ampoule Inspector Relationship Specialty Start Date End Date Kristian Ewing MD [address] [place] [address] PCP - General Internal Medicine 10/22/17 documented as of this encounter Additional Source Comments The information contained in this document represents components of the legal health record. It is not the complete legal health record.[facility]
--- OUTSIDE RECORDS SUMMARY | 2025-07-14 09:30 | XMS_ITS | Encounter Summary ---
Author Organization [facility] Address [address] [place] [address] Care Team Providers Care Retail Event Assistant Name Role Phone Jerri Leija NP Primary Care Provider [phone] Encounter Details Date Type Department Care Team (Latest Contact Info) Description 07/14/2025 9:30 AM EDT Ancillary Procedure [facility] [address] [facility] [address] [place] [address] Encounter for adjustment or management of cardiac device Social History Tobacco Use Types Packs/Day Years Used Date Smoking Tobacco: Former Cigarettes Smokeless Tobacco: Never Alcohol Use Standard Drinks/Week Comments Not Currently 0 (1 standard drink = 0.6 oz pur e alcohol) Housing Instability Answer Date Recorde d Are you worried that in the next 2 months you may not have stable housing? No 06/22/2025 Food Access & Nutrition Answer Date Rec orded Do you have access to a vari ety of food including fruits and vegetables? Yes 06/22/2025 Access to Healthcare Answer Date Record ed Within the last 3 months, ho w many times did you visit the emergency department for your medical care? 1 06/22/2025 Health Literacy Answer Date Recorded How often do you need to hav e someone help you when you read instructions, pamphlets, or other written material from your doctor or pharmacy? Never 06/22/2025 Caregiver: How often do you need to have someone help you when you read instructions, pamphlets, or other written material from your doctor or pharmacy? Not on file 06/22/2025 Financial Risk Answer Date Recorded How hard is it for you to pa y for the very basics like food, housing, medical care, and air conditioning / heating? Not very hard 06/22/2025 Transportation Answer Date Recorded Has the lack of transportati on kept you from meetings, work, or from getting things needed for daily living? No Has the lack of transportati on kept you from medical appointments or from getting medications? No 06/22/2025 Social Isolation Answer Date Recorded How often do you feel lonely or isolated from th ose around you? Never 06/22/2025 Food Risk Answer Date Recorded Within the past 12 months we worried whether our food would run out before we got money to buy more. Never true 06/22/2025 Within the past 12 months th e food we bought just didn't last and we didn't have money to get more. Never true 06/22/2025 Dependent Care Answer Date Recorded Do you need help finding or paying for care for your loved ones. For example, residential child care counselor or elderly care for an older adult? No 06/22/2025 Education Answer Date Recorded Do you think completing more education or training, like finishing a GED, going to college, or learning a trade, would be helpful for you? No 06/22/2025 Employment and Income Answer Date Recor ded During the last four weeks, have you been actively looking for work? No 06/22/2025 Living Situation Answer Date Recorded What is your living situation? Unrecognized valu e 06/22/2025 Comments No Sex and Gender Information Value Date Recorded Sex Assigned at Female 04/21/2025 3:29 PM EDT Legal Sex Female 11:56 AM EST Gender Identity Female 04/21/2025 3:29 PM EDT Sexual Orientation Not on file documented as of this encounter Plan of Treatment Upcoming Encounters Date Type Department Care Team (Late st Contact Info) Description 08/19/2025 12:30 PM EST Ancillary Procedure [facility] Cardiology [facility] [address] [place] [address] 09/07/2025 11:10 AM EST Office Visit [facility] [address] [place] [phone] Alex Abbott NP [address] [place] [address] [place] [phone] 01/17/2026 11:00 AM EDT Ancillary Procedure [facility] [address] [place] [phone] documented as of this encounter Procedures Procedure Name Priority Date/Time Associated Diagnosis Comments CARDIAC DEVICE CHECK- IN CLINIC- [facility] Routine 07/14/2025 1:37 PM EDT Encounter for adjustment or management of cardiac device documented in this encounter Results * CARDIAC DEVICE CHECK- IN CLINIC- [facility] (07/14/2025 1:37 PM EDT) Date Time Interrogation Session [id number] CV DEVICE CHECK Implantable Pulse Generator Senior Chemical Process Engineer [employer] CV DEVICE CHECK Implantable Pulse Generator Type IPG CV DEVICE CHECK Implantable Pulse Generator Model Aveir VR LP [id number] CV DEVICE CHECK Implantable Pulse Generator Serial Number [id number] CV DEVICE CHECK Implantable Pulse Generator Implant Date 20240629 CV DEVICE CHECK Battery Status Middle of Service CV DEVICE CHECK Yann Setting Mode (NBG Code) VVIR CV DEVICE CHECK Yann Setting Lower Rate Limit 60 CV DEVICE CHECK Yann Setting Maximum Sensor Rate 110 CV DEVICE CHECK Date of Service 2026-01-05 CV DEVICE CHECK Anatomical Region Laterality Modality Device Interroga tion 07/14/2025 Impressions 07/16/2025 7:51 AM EDT Normal In-Office: No Events * Normal Device Function * Alerts or events: None * Battery: MOS, 9 years * Sensing, impedance and thresholds reviewed and tested * Presenting Rhythm: WEAVER APPRENTICE 60s * No R waves @ VVI 30 bpm today * Heart Rate Histograms reviewed * Pacing and Detection Parameters were evaluated Narrative Procedure Note Gonzales Berg MD - 07/16/2025 IMPRESSION: Normal In-Office: No Events * Normal Device Function * Alerts or events: None * Battery: MOS, 9 years * Sensing, impedance and thresholds reviewed and tested * Presenting Rhythm: WEAVER APPRENTICE 60s * No R waves @ VVI 30 bpm today * Heart Rate Histograms reviewed * Pacing and Detection Parameters were evaluated us Order Referral Cardiovascular CV IMPLANTABLE CAR DIAC DEVICE PROCEDURES Final Result documented in this encounter Visit Diagnoses Diagnosis Encounter for adjustment or management of cardiac device Encounter for adjustment or management of cardiac device documented in this encounter Additional Health Concerns Assessment Noted Time PHQ-9 Depression Total Score: 0 06/22/20 25 9:59 AM EDT documented as of this encounter Care Teams Retail Event Assistant Relationship Specialty Start Date End Date Jerri Leija NP [address] [address] PCP - General 11/13/22 documented as of this encounter
[2025-07-16 09:55] VITALS: BP 146/60; PULSE 66; O2SAT 94
--- NOTE | 2025-07-16 09:55 | A.OFFVIS_ITS ---
Vital Signs 07/16/25 09:55 Height 5 ft 2 in Weight 164 lb 3.91 oz BMI 30.0 BP 146/60 H Blood Pressure Location Lt brachial Position Sitting Pulse 66 Pulse Source Pulse Oximeter Pulse Oximetry (%) 94 Oxygen Delivery Method Room Air Intake Visit Reasons: COPD Hot Wire Glass Tube Cutter Required: No Accompanied by: Self / Same As Patient Allergies acetaminophen (From Percocet) Adverse Reaction (Severe, Verified 04/28/25 08:39) Vomiting aspirin (From Percodan) Adverse Reaction (Severe, Verified 04/28/25 08:39) Vomiting oxycodone (From Percocet) Adverse Reaction (Severe, Verified 04/28/25 08:39) Vomiting HPI Comments Details: The patient is a 80 year woman former smoker with a 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 The patient has been on Incruse for many years. She has also been on prednisone. Her last CT scan of the chest that we have on record was done at [facility] back in 2021 demonstrating extensive emphysema in addition to that does have evidence of compression fractures. She does not complain of significant pain. Although she is aware that the prednisone will potentially affect her healing and potentially cause worsening of the osteopenia and osteoporosis predisposing her to more fractures. The her last PFTs occurred back in 2020 with an FEV1 of 0.9 L which is around 60% predicted consistent moderate to severe COPD. The patient does have oxygen that she uses with activity. She also has a CPAP that she uses at nighttime. 02/06/2023 the patient is here for a pulmonary follow-up visit. The patient doing a lot better on the Trelegy inhaler. She still using the oxygen although difficult to carry. We did do a conserving device trial she did good on 3 L pulse. Will try to get a portable oxygen concentrator in order for her to have better portability outside the home. In the meantime, she will continue with the B cylinders the. We did review her PFTs demonstrating severe COPD in addition to mild restrictive lung disease. She continues to use her CPAP. However, she is not tolerating the fullface mask. I did have a nasal N30i small mask that she tried in the like. I will send a prescription to her [employer] company as well. 11/22/2023 the patient is here for a pulmonary follow-up visit. She continues to do fairly well on the Trelegy inhaler. She does use it every day. She also has a rescue inhaler that she has not required. The patient is having issues with shortness breath. She does have the oxygen tanks but they are very heavy for her. Is hard for her to have any portability outside of the home with the oxygen tanks. We had requested a portable oxygen concentrator for her. She does qualify for the conserving device. We did requalify her with a 6 minute walk test today and again she did require 2 L pulse to maintain a pulse ox of 92%. Will go ahead and request from her DME company the POC for better portability. In the meantime the patient continues to use her CPAP at nighttime. With her underlying COPD and chronic respiratory failure will go ahead and check a blood gas to see if we need to consider noninvasive ventilation. Her last CT scan was from June 2023 with emphysematous changes. no pulmonary emboli appreciated on the CT scan. 03/25/2024 the patient is here for a pulmonary follow-up visit. She continues to do very well on the Trelegy inhaler. He has been very affecting beneficial. She has not required her rescue inhaler often. Typically less than 2 times a week. She also has been using her oxygen with the conserving device with activity. And she has her concentrator and home. She does use the oxygen with CPAP at nighttime. The therapy again has been effective. We did review her blood work that she had back in November. It was noted that she was anemic and also her potassium is critically low. She has not had any additional blood work since then. We had given her supplementation. I did give her paperwork for labs which will mail to her house in order for her to get blood work at [facility]. There is her primary care doctor will have full access to her blood work as well. Make sure that she has not further new making make sure the potassium is corrected. But clinically she feels very well. Will follow-up in 6 months. If she has not difficulties prior to that she will call for an earlier assessment. 07/31/2024 the patient is here for a pulmonary follow-up visit. She has been hospitalized times since we spoke. Overall she is doing better from a cardiac standpoint. The patient now needs to have a hernia repair for ventral hernia. This is going to be scheduled at [facility]. From a respiratory status she is doing well. She had been on Trelegy but now is extremely expensive likely because of the donut hole. She continues use the oxygen. Although she has not been able to get a portable oxygen concentrator. She is traumatized because of the oxygen tanks specially when on 1 of the oxygen tanks fell down to the ground and made a significant amount of noise and now she has traumatized with the oxygen tanks that she does not want to leave her house with the portable oxygen tanks. She needs a portable oxygen concentrator to help her have better portability outside of the home. We did do another walking oximetry today. She did desaturate to 88% on room air with activity and the patient did respond to 2 L pulse with activity maintaining a pulse ox of 94% with activity which is reassuring. She does need a POC in order to stay active. Today she came in [facility] a wheelchair because she has a hard time without the I will reach out to [facility] to explain to her the traumatize state that she has after the oxygen tank fell and therefore she can not use oxygen tanks for portability. She continues uses CPAP nighttime. The CPAP therapy continues to be affecting beneficial. Although the last 2 nights she has had nose bleeding she has not been able to use it. She is going to follow-up with ENT soon. She did need cautery sometime ago. For now she is using oxygen to sleep with. 03/16/2025 the patient is here for a pulmonary follow-up visit. She states that for the last few days her breathing has been gotten worse. Over the weekend she did take additional prednisone and also been doing the nebulizer treatments. She has felt better. Although she is still not her baseline. As far as medication changes recently she was taken off her Lasix 40 mg daily because her blood pressure was a little on the low side. She feels that that may be playing a role. I do believe she has gained some weight since stopping the Lasix and this is probably causing some vascular congestion. She does have some crackles on exam. Will have her get an x-ray. Meantime she is going to go back on the Lasix half dose and she is going to check her blood pressure with a blood pressure cuff she has not home. If her blood pressure still below 100 she can decrease it to half a tablet 3 times a week. But she needs to stay on some diuretic to improve her volume status minimize chest congestion and cardiac asthma. The patient also continues on prednisone he continues with respiratory therapy in her oxygen. If her x-ray is abnormal I will let her know. In the meantime she will call if her symptoms continue to persist. Will follow-up in 3-4 months. If she has any issues prior to that she will call for an earlier assessment. 04/28/2025 the patient is here for pulmonary follow-up visit. Overall she is doing okay although still having significant back pain. She is scheduled to see specialists for stabilizing her compression fracture. She continues to be on prednisone. She knows the prednisone can worsen the compression fractures. She actually was evaluated the beginning of the month of April at [facility] with worsening respiratory symptoms. She was discharged with an asthma exacerbation. She feels like her breathing is better although she feels very congested with yellowish phlegm. They did not give her any antibiotics. We did talk about chronic macrolide therapy however she states that she has had issues with azithromycin in the past where she developed atrial fibrillation. Therefore will hold off on that and will give her some Augmentin since she seems to tolerate it and she can not take that for 10 days. In addition to that she is going to taper down the prednisone. The patient does have evidence of chronic bronchitis therefore, she will be a good candidate for Daliresp. Will start her on a small dose of 250 mcg with the hope of increasing it to the therapeutic dose with her follow-up. If she does not tolerate the Daliresp we can also consider Ohtuvayre. 07/16/2025 the patient is here for pulmonary follow-up visit. She is complaining of worsening shortness of breath cough chest congestion. Moderate severity. She is also using the oxygen. She states she is having hard time with a portable oxygen concentrator that she got from her [employer] company because it is too heavy. Will reach out to them to see if they can talk to her because she seems upset and needs some reassurance from the [employer] company. In the meantime she does have chest congestion. We will go ahead and start her on azithromycin 3 times a week. Will try this for period of time to see if we can get the chronic bronchitis treated. We had also sent her a prescription for Daliresp but she never picked it up. Will go ahead and send another prescription for the 250 mcg dose. If she can not tolerate it we can also consider O2 air. Does not look like she has had significant eosinophilia so therefore biologics are not necessarily going to be helpful. Therefore will go ahead and start her on the Daliresp and also the azithromycin. She will get blood work and an EKG next week specially since she has been more dyspneic and she has been known to have anemia. Her last hemoglobin on record was 10 from 2023. [facility] Medical History (Updated 03/22/25 @ 09:08 by Shon Gunderson MD) Hypokalemia Anemia NAKIA on CPAP Compression fracture of body of thoracic vertebra Chronic respiratory failure COPD (chronic obstructive pulmonary disease) Dependence on nocturnal oxygen therapy BRENDA (iron deficiency anemia) (HFpEF) heart failure with preserved ejection fraction Aortic stenosis GERD (gastroesophageal reflux disease) Hypertension Atrial fibrillation Surgical History (Updated 12/06/22 @ 13:47 by Jerri Noguera PA-C) Presence of Watchman left atrial appendage closure device S/P cryoablation of arrhythmia Social History Patient Tobacco Use Status: Former Tobacco user Tobacco use type: Cigarette Years Smoked: 20+ Years Review of Systems Const Reports daytime sleepiness and Denies fever(s) Eyes Denies change in vision ENT Denies change in voice Card Denies chest pain and Reports dyspnea on exertion Resp Reports chest congestion, Reports cough, Reports dyspnea on exertion and Reports wheezing GI Reports no additional complaints Musc Reports myalgias Skin/Breast Denies rash Neuro Reports no additional complaints Martin/Lymph Denies easy bruising and Denies lymphadenopathy Aller/Immun Reports wheezing Physical Exam Vital Signs: Last Vital Signs Pulse 66 07/16/25 09:55 BP 146/60 H 07/16/25 09:55 Pulse Ox 94 07/16/25 09:55 Oxygen Delivery Method Room Air 07/16/25 09:55 BMI result Body Mass Index 30.0 Const General: comfortable HEENT Head: Yes normocephalic Neck Neck: Yes supple Chest Chest palpation & inspection: normal inspection of the chest Resp Effort & Inspection: normal respiratory effort Auscultation: crackles and diminished lung sounds Cardio Rate: regular rate Rhythm: regular rhythm Heart sounds: S1 normal heart sound present and S2 normal heart sound present GI Palpation (GI): Soft to palpation Skin General skin exam: no rashes or lesions noted Extrem General: Yes no clubbing, cyanosis or edema Office Procedures 6 Minute Walk Time:: 10:30 SPO2 % at rest: 93 Pulse at rest: 62 SPO2 % during excercise: 91 Pulse during excercise: 63 SPO2 % after excercise: 94 Pulse after excercise: 71 Distance in yards walked: 100 Becky Score: 8 Performance Observations:: Viridiana walked on level ground with the assistance of a walker, she walked on room air the entire walk. She maintained her SPO2 91-93%, no supplemental O2 needed. [address] - 6 Minute Walk Assessment & Plan Assessment & Plan (1) COPD (chronic obstructive pulmonary disease): Code(s): J44.9 - Chronic obstructive pulmonary disease, unspecified Category: Medical Qualifiers: COPD type: emphysema Emphysema type: centrilobular Qualified Code(s): J43.2 - Centrilobular emphysema (2) Chronic respiratory failure: Code(s): J96.10 - Chronic respiratory failure, unspecified whether with hypoxia or hypercapnia Category: Medical Qualifiers: Respiratory failure complication: hypoxia Qualified Code(s): J96.11 - Chronic respiratory failure with hypoxia (3) Compression fracture of body of thoracic vertebra: Code(s): S22.000A - Wedge compression fracture of unspecified thoracic vertebra, initial encounter for closed fracture Category: Medical (4) NAKIA on CPAP: Code(s): G47.33 - Obstructive sleep apnea (adult) (pediatric); Z99.89 - Dependence on other enabling machines and devices Category: Medical (5) Anemia: Code(s): D64.9 - Anemia, unspecified Category: Medical Qualifiers: Anemia type: unspecified type Qualified Code(s): D64.9 - Anemia, unspecified Plan continue Trelegy 200 BHARATI as needed continue APAP Bloodwork POC oxygen, 3L pulse with activity, will benefit from a portable oxygen concentrator (POC) for better portability outside of the home. decrease Prednisone 10mg->5mg daily every other day start azithromycin MWF Start Dalireso 250mcg Bloodwork EKG next week to check QT interval while on Macrolide therapy F/U 2-3 months Orders: Orders Basic Metabolic Panel 10/10/25 J43.2 - Centrilobular emphysema AMB 6 minute walk 07/16/25 J43.2 - Centrilobular emphysema Complete Blood Count Auto Diff 07/16/25 J43.2 - Centrilobular emphysema Erythrocyte Sedimentation Rate 07/16/25 J43.2 - Centrilobular emphysema Immunoglobulin E 07/16/25 J43.2 - Centrilobular emphysema ECG 12 lead EKG 07/16/25 J44.9 - Chronic obstructive pulmonary disease, unspecified Medications: Refilled roflumilast (Daliresp) 250 mcg PO DAILY 30 tabs 11RF 30 days J44.9 - Chronic obstructive pulmonary disease, unspecified Coding Level of Care Code Est Pt Level 5 (80399) Complex EM visit Add On G2211 Diagnoses Centrilobular emphysema J43.2 COPD type: emphysema Emphysema type: centrilobular Chronic respiratory failure with hypoxia J96.11 Respiratory failure complication: hypoxia Compression fracture of body of thoracic vertebra S22.000A NAKIA on CPAP G47.33; Z99.89 Anemia, unspecified type D64.9 Anemia type: unspecified type CPT Codes Coding ([id number]) Time Spent (min) 60
--- OUTSIDE RECORDS SUMMARY | 2025-07-16 10:37 | XMS_ITS | Clinical Summary ---
Author Organization [facility] Address [address] [place] [id number] Phone Care Team Providers Care Slate Trimmer Name Role Phone Kristian Ewing MD Primary [...] Active ferrous sulfate 325 mg (65 mg [place] iron) tablet Take 350 mg by mouth [...] this topic Medical Devices Implanted Type Area Tilting Head Band Sawyer Device Identifier Shelf Expiration Date Model / Serial / Lot Watchman Kaylie Closure [id number] Us - [id number] Implanted:Qty: 1 on 02/27/2018 by Alireza Hayes MD at [facility] KAYLIE Occluder Left: [employer] 09/19/2020 [id number] / / [id number] Procedures Procedure Name Priority Date/Time Associated Diagnosis Comments BASIC METABOLIC PANEL Routine 02/28/2018 6:25 AM EDT from Last 3 Months or Most Recently Relevant to Health Maintenance Results * (ABNORMAL) Basic metabolic panel (02/28/2018 6:25 AM EDT) SODIUM 139 135 - 145 mmol/L [facility] POTASSIUM 4.1 3.4 - 5.0 mmol/L [facility] CHLORIDE 102 98 - 108 mmol/L [facility] CO2 21(L) 23 - 32 mmol/L [facility] BUN 15 8 - 25 mg/dL [facility] CREATININE 0.81 0.60 - 1.50 mg/dL [facility] GLUCOSE 117(H) 70 - 110 mg/dL [facility] CALCIUM 8.7 8.5 - 10.5 mg/dL [facility] EGFR 73 >59 mL/min/1. 73m2 [facility] Comment:If patient is black, multiply result by 1.159. Estimated glomerular filtration rate calculated using the CKD-EPI equation. ANION GAP 16 3 - 17 mmol/L [facility] Blood 02/28/2018 6:25 AM EDT 02/28/2018 8:12 AM EDT us Alireza Hayes MD LAB BLOOD ORDERABLES Final R esult [address] [id number] from Last 3 Months or Most Recently Relevant to Health Maintenance Insurance HMO [address] [place], [place] [address] [place], [place] [address] [place], [place] [address]O O O O Advance Directives For more information, please contact: [phone] (9AM - 5PM [facility], Saturday-Saturday) Documents on File Type Date Recorded Patient Systems Integration Advisor Expl anation Healthcare Proxy 03/04/2018 4:21 PM * Full Code (Presumed) (Latest Code Status on File) Date Activated Date Inactivated Comments 02/27/2018 4:07 PM 02/28/2018 3:04 PM Care Teams Slate Trimmer Relationship Specialty Start Date End Date Kristian Ewing MD [address] [place] [id number] PCP - General Internal Medicine 10/22/17 Additional Source Comments The information contained in this document represents components of the legal health record. It is not the complete legal health record.[facility]
--- OUTSIDE RECORDS SUMMARY | 2025-07-16 10:37 | XMS_ITS | Encounter Summary ---
Author Organization [facility] Address [address] [place] [address] Care Team Providers Care Laboratory Technical Specialist Name Role Phone Jerri Leija NP Primary Care Provider Reason for Visit * Reason Onset Date Comments pt needs labs before 09/07/25 TAVR f/u visit daphne fleming [facility] 07/08/2025 Encounter Details Date Type Department Care Team (Late st Contact Info) Description 07/08/2025 Telephone [facility] Cardiology [facility] [address] [place] [address] Mariola oVgt MD [address] [place] [address] [place] [address] Social History Tobacco Use Types Packs/Day Years [...] care for your loved ones. For example, rn child or elderly care for an older adult? [...] on file documented as of this encounter Progress Notes * Yanetjeny Hamiltonin - 07/08/2025 2:09 PM EDT Bina is scheduled for a one year TAVR follow up visit with Alex Abbott on Sunday September 07, 2025 at 11:10 AM. Can you please arrange labs prior to her appointment? Thanks. documented in this encounter Plan of Treatment Upcoming Encounters Date Type Department Care Team (Late st Contact Info) Description 08/19/2025 12:30 PM EST Ancillary Procedure [facility] Cardiology [facility] [address] [place] [address] 09/07/2025 11:10 AM EST Office Visit [facility] [address] [place] [address] [place] [phone] Alex Abbott NP [address] [place] [address] [address] [place] [address] 01/17/2026 11:00 AM EDT Ancillary Procedure [facility] - [address] [place] [address] documented as of this encounter Visit Diagnoses Not on filedocumented in this encounter Additional Health Concerns Assessment Noted Time PHQ-9 Depression Total Score: 0 06/22/20 25 9:59 AM EDT documented as of this encounter Care Teams Laboratory Technical Specialist Relationship Specialty Start Date End Date Jerri Leija NP [address] [place] [address] PCP - General 11/13/22 documented as of this encounter
--- OUTSIDE RECORDS SUMMARY | 2025-07-16 10:37 | XMS_ITS | Encounter Summary ---
Author Organization [facility] Address [address] [place] [address] Phone Care Team Providers Care Sourcing Consultant Name Role Phone Kristian Ewing MD Primary Care Provid er Encounter Details Date Type Department Care Team (Late st Contact Info) Description 02/27/2018 Procedure Pass [facility] [address], [address] [place] [phone] Social History Tobacco Use Types Packs/Day Years [...] on filedocumented in this encounter Care Teams Sourcing Consultant Relationship Specialty Start Date End Date Kristian Ewing MD [address] [place] [address] PCP - General Internal Medicine 10/22/17 documented as of this encounter Additional Source Comments The information contained in this document represents components of the legal health record. It is not the complete legal health record.[facility]
--- OUTSIDE RECORDS SUMMARY | 2025-07-16 10:37 | XMS_ITS | Clinical Summary ---
Author Organization [facility] Text A Cab Address [address] [facility] [place] [address] Phone Care Team Providers Care Score Caller Name Role Phone Jerri Leija NP Primary Care Provider [phone] Allergies Active Allergy Reactions Criticality Noted Date Comments Azithromycin High 04/18/2017 Adverse Reaction, Severe, places her into AFIB Oxycodone Nausea And Vomiting Medium 11/10/2021 Oxycodone Hcl Nausea And Vomiting Medium 11/10/2021 Oxycodone-Aspirin 01/03/2017 Medications predniSONE (DELTASONE) 10 mg tablet Take 1 tab daily x 4 days, then 1/2 tab daily 02/14/20 24 Active levalbuterol (XOPENEX HFA) 45 mcg/actuation inhaler Inhale 1-2 Puffs into the lungs every 4 hours as needed for Wheezing, Shortness of Breath or Cough. 10/02/20 23 Active ferrous sulfate 325 mg (65 mg elemental iron) tablet Take 1 tablet (325 mg total) by mouth 1 (one) time each day. 11/29/19 24 Active fluticasone-um eclidinium-derrick anterol (Trelegy Ellipta) 200-62.5-25 mcg inhaler INHALE 1 PUFF BY MOUTH DAILY FOR 30 DAYS 12/07/19 23 Active ASPIRIN ORAL Take by mouth. 81 MG Active multivitamin (MULTIPLE VITAMINS ORAL) TAKE 1 TABLET DAILY. 01/04/20 17 Active levalbuterol (XOPENEX) 0.31 mg/3 mL nebulizer solution Sig - Route: TAKE 3 ML BY NEBULIZATION EVERY 4 HOURS NEEDED FOR WHEEZING, SHORTNESS OF BREATH OR COUGH. 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 30 each 11 09/14/20 24 025 Active omeprazole (PriLOSEC) [address] capsuleIndicat ions:Gastro-es ophageal reflux disease without esophagitis TAKE 1 CAPSULE BY MOUTH DAILY FOR 360 DAYS. 90 capsule 1 02/02/20 25 Active furosemide (LASIX) 40 mg tabletIndicati ons:Gastro-eso phageal reflux disease without esophagitis,No nrheumatic aortic (valve) stenosis TAKE 1 TABLET BY MOUTH EVERY DAY 90 tablet 1 02/02/20 25 Active polyethylene glycol (Miralax) 17 gram/dose oral powder Take 17 g by mouth 1 (one) time each day. 527 g 2 03/11/20 25 Active potassium chloride (MICRO-K) 10 mEq CR capsule TAKE 1 CAPSULE BY MOUTH DAILY FOR 360 DAYS. 90 capsule 1 04/13/20 25 Active metoprolol succinate (TOPROL-XL) 25 mg 24 hr tablet TAKE 1/2 TABLET BY MOUTH DAILY 45 tablet 1 07/12/20 25 Active metoprolol succinate (TOPROL-XL) 25 mg 24 hr tablet Take 0.5 Tablets by mouth daily. 02/13/20 24 025 Discontinued Active Problems Problem Noted Date Diagnosed Date Hypercholesterolemia 12/23/2024 Chronic bilateral low back pain with bilateral s ciatica 12/23/2024 Hx of atrioventricular node ablation 09/22/2024 Overview (09/22/2024): Status post AV node ablation and leadless ventricular pacemaker placement in June 2024. Follow-up capture thresholds and sensing are excellent. No kake conduction. Pacemaker 09/14/2024 Overview (09/22/2024): June 29, 2024 - implant of SJM leadless pacemaker(aveir) with AV node ablation at [facility] by Dr. Berg Assessment & Plan (09/14/2024 12:48 PM EST): Functioning well on EKG. Continue to monitor through device clinic at [facility]. S/p TAVR (transcatheter aort ic valve replacement), bioprosthetic 09/01/2024 Overview (09/01/2024): Successful TAVR using 29mm Evolute Fx plus on July 20, [address] Vogt at [facility]. No complications. Discharged with Aspirin monotherapy. Assessment [...] echocardiogram completed. Coronary artery disease invo lving kake coronary artery of kake heart without angina pectoris 09/01/2024 Overview (09/01/2024): [...] 01/23/2023 Acute respiratory failure wi th hypoxia ([facility] V24, [facility] V28) 01/04/2022 Chest pain 01/04/2022 (HFpEF) heart failure with p reserved ejection fraction ([facility] V24, [facility] V28) 01/04/2022 Overview (09/01/2024): July 2024 [...] daily weights and medication compliance. Atrial flutter ([facility] V24, [facility] V28) 2020 Shortness of breath on exertion 08/17/2021 Assessment & Plan (09/14/2024 12:48 PM EST): Residual combination of anemia, COPD and deconditioning. We discussed risk reduction through lifestyle choices including healthy diet, routine exercise and weight management. Follow up with pulmonary at regular interval and participate in cardiac and pulmonary rehab. Asthma 01/02/2018 Supplemental oxygen dependent 01/02/2018 Emphysema/COPD 08/11/2017 Overview (07/07/2025): 07/07/25 Regulatory IMO Update Hypertension 08/11/2017 Assessment & Plan (09/14/2024 12:48 PM EST): Controlled. Continue with furosemide and metoprolol. Atrial fibrillation (CMS/HCC V24, CMS/HCC V28) 0 06/12/2017 Overview (09/01/2024): Non-longstanding persistent [...] on chronic diastolic ( congestive) heart failure (CMS/HCC V24, CMS/HCC V28) 11/13/202209/01 Aortic stenosis 08/17/2021 09/01/2024 Overview (07/03/2024): Last Assessment & Plan: She does have moderate aortic stenosis which was also confirmed on MILLIE. Nothing to do at this time. Will continue to monitor. Likely minimally contributory to her dyspnea. Congestive heart failure (CH F) (CMS/HCC V24, CMS/HCC V28) 01/02/2018 09/01/2024 Encounters Date Type Department Care Team Description 07/14/2025 9:30 AM EDT Ancillary Procedure [facility] Cardiology [facility] [address] [place] [phone] Encounter for adjustment or management of cardiac device 07/08/2025 Telephone [facility] [address] [place] [phone] Mariola Vogt MD 06/22/2025 9:30 AM EDT Telemedicine [facility] [address] [place] [address] Routine general medical examination at a health care facility (Primary Dx); Encounter for subsequent annual wellness visit (AWV) in Medicare patient 06/18/2025 Telephone [facility] - [address] [place] [address] Kathia Cortes MA 05/06/2025 Telephone [facility] [address] [place] [address] Mariola Vogt MD 04/22/2025 1:15 PM EDT - 04/22/2025 11:59 PM EDT Hospital Encounter [facility] Nuclear Medicine [address] [place] [phone] Discharge Disposition: Home or Self Care 04/22/2025 9:42 AM EDT - 04/22/2025 11:59 PM EDT Hospital Encounter [facility] Nuclear Medicine [address] [place] [phone] Lumbar back pain Discharge Disposition: Home or Self Care from Last 3 Months Immunizations Immunization Administration Dates Next Due Influenza Quadravalent, 0.5ml (Fluad) 65yo and o lder 07/22/2023 Influenza Quadravalent, 0.5m l (Fluzone High-dose) 65yo and older 08/08/2022 Influenza trivalent, 0.5mL ( Fluzone High-dose) 65yo and older 06/25/2025,06/06/2024 Influenza, Unspecified 06/06/2024 Pneumococcal conjugate 13 va lent (Prevnar 13, PCV13) 2mo and older 09/04/2016 Pneumococcal conjugate 20 va lent (Prevnar 20, PCV 20) 2mo and older 04/04/2022 Pneumococcal polysaccharide 23 valent (Pneumovax 23) 2yo and older 09/06/2017 RSV, bivalent, protein subun it RSVpreF, 0.5mL, Preservative Free (Arexvy) 50yo and older 08/11/2023 Surgical History Surgery Date Site/Laterality Comments APPENDECTOMY CARPAL TUNNEL RELEASE COLONOSCOPY 10/07/2015 - 10/06/2016 HERNIA REPAIR HYSTERECTOMY 10/07/1988 - 10/06/1989 NECK SURGERY OTHER SURGICAL HISTORY watchman procedure PACEMAKER IMPLANT N/A AORTIC VALVE REPLACEMENT N/A Tavr Medical History Medical History Date Comments A-fib ([facility] V24, [facility] V28) Acute respiratory failure with hypoxia ([facility] V24, [facility] V28) Asthma Anxiety NAKIA on CPAP Ventral hernia SOB (shortness of breath) Sciatica Multiple pulmonary nodules COPD (chronic obstructive pulmonary disease) (CM S/HCC V24, [facility] V28) CHF (congestive heart failure) ([facility] V24, [facility] V28) Acute pancreatitis H/O cataract removal with insertion of prostheti c lens Family History Medical History Relation Name Comments Emphysema Father [place] at 74 Heart attack Maternal Grandmother Hypertension Mother unknown cardiac Mother Breast cancer Other mother side x2 aunts other Sister sciatiac , card iac No Known Problems Son x Relation Name Status Comments Brother Father Maternal Grandmother Mother Other mother side Sister Alive Son x Alive x2 Social History Tobacco Use Types Packs/Day Years [...] care for your loved ones. For example, child and adolescent psychologist or elderly care for an older adult? [...] Description 08/19/2025 12:30 PM EST Ancillary Procedure [facility] Cardiology [facility] [address] [place] [phone] 09/07/2025 11:10 AM EST Office Visit [facility] [address] [place] [phone] Alex [place] NP [address] [place] [address] [address] [place] [phone] 01/17/2026 11:00 AM EDT Ancillary Procedure [facility] Cardiology [facility] [address] [place] [phone] Health Maintenance Due Date Last Done Comments DTaP,Tdap,and Td Vaccines (1 - Tdap) 1965 Zoster Vaccines (1 of 2) 1996 Hepatitis C Screening 09/15/2022 Osteoporosis Screening (Bone Density Screening) 09/15/2022 Hypertension/CHF/CAD Annual BMP Blood Test 12/23/2025 12/23/2024, 08/19/2024, 05/06/2024, Additional history exists Falls Risk Assessment 06/22/2026 06/22/2025 Medicare Annual Wellness Visit 06/22/2026 06/22/2025 Social Influencers of Health Screening 06/22/2026 06/22/2025 Cholesterol Screening (Lipid Panel) 12/23/2029 12/23/2024, 01/23/2023 Pneumococcal Vaccine: 50+ Years Completed 04/04/2022, 09/06/2017, 09/04/2016 RSV Immunization Adult Patients Completed 08/11/2023 Depression Screening Completed 06/22/2025 COVID-19 Vaccine Completed 06/25/2025, , 07/22/2023, Additional history exists Influenza Vaccine Completed 06/25/2025, , 06/06/2024, Additional history exists HIB Vaccines Aged Out [...] this topic Medical Devices Implanted Type Area Environmental Director Device Identifier Shelf Expiration Date Model / Serial / Lot Cardiac Pacemaker-06/08 Implanted: by Gonzales Berg MD (Quantity not on file) Cardiac Pacemaker Right: Heart [facility] [employer] CRMD++DNU+SUMMERT/ KASSY Description:Leadless Kaylee V R Summert-Stju Aveir Vr Lp [id number] -06/29/2024 Implanted: by Gonzales Berg MD (Quantity not on file) Cardiac Pacemaker Left: Chest [facility] VR LP [id number] / [id number] / Abbt-Stju Aveir Vr Lp [id number] Implanted: (Quantity not on file) Cardiac Pacemaker [facility] [employer] [employer] [id number] / [id number] / Procedures Procedure Name Priority Date/Time Associated Diagnosis Comments CARDIAC DEVICE CHECK- IN [facility]IC- [facility] Routine 07/14/2025 1:37 PM EDT Encounter for adjustment or management of cardiac device NM BONE/JOINT SCAN SPECT CT Routine 04/22/2025 2:20 PM EDT Lumbar back pain BASIC METABOLIC PANEL Routine 12/23/2024 11:40 AM EDT Chronic heart failure with preserved ejection fraction (CMS/HCC V24, CMS/HCC V28) LIPID PANEL WITH REFLEX TO DIRECT LDL Routine 12/23/2024 11:40 AM EDT Hypercholesterolemi a from Last 3 Months or Most Recently Relevant to Health Maintenance Results * CARDIAC DEVICE CHECK- IN CLINIC- [facility] (07/14/2025 1:37 PM EDT) Date Time Interrogation Session [id number] CV DEVICE CHECK Implantable Pulse Generator Environmental Director [employer] CV DEVICE CHECK Implantable Pulse Generator Type IPG CV DEVICE CHECK Implantable Pulse Generator Model Aveir VR LP [id number] CV DEVICE CHECK Implantable Pulse Generator Serial Number [id number] CV DEVICE CHECK Implantable Pulse Generator Implant [...] thresholds reviewed and tested * Presenting Rhythm: LEAD SOFTWARE TEST ENGINEER 60s * No R waves @ VVI 30 bpm today * Heart Rate Histograms reviewed * Pacing and Detection Parameters were evaluated Narrative Procedure Note Gonzales Berg MD - 07/16/2025 IMPRESSION: Normal In-Office: No Events * Normal Device Function * Alerts or events: None * Battery: MOS, 9 years * Sensing, impedance and thresholds reviewed and tested * Presenting Rhythm: LEAD SOFTWARE TEST ENGINEER 60s * No R waves @ VVI 30 bpm today * Heart Rate Histograms reviewed * Pacing and Detection Parameters were evaluated us Order Referral Cardiovascular CV IMPLANTABLE CAR DIAC DEVICE PROCEDURES Final Result * NM Bone/Joint Scan Spect CT (04/22/2025 [...] Signed Date: 04/27/2025 12:10 ET Workstation ID: [id number] Transcribed By: Self Edit Transcribed Date: 04/27/2025 [...] of the abdomen and pelvis from November 122reviewed. Chest CT from November 07, 2023 reviewed [...] Signed Date: 04/27/2025 12:10 ET Workstation ID: [id number] Transcribed By: Self Edit Transcribed Date: 04/27/2025 10:55 ET Lorenzo Thornton MD IM NM PROCEDURES Final Result * Lipid panel with reflex to direct LDL (12/23/2024 11:40 AM EDT) Cholesterol 157 0 - 200 mg/dL LAB CHEMISTRY [facility] Triglycerides 122 0 - 150 mg/dL LAB CHEMISTRY METHOD 12/23/2024 3:43 PM [facility] HDL 75 >=40 mg/dL LAB CHEMISTRY METHOD 12/23/2024 3:43 PM [facility] LDL Calculated 58 0 - 100 mg/dL LAB CHEMISTRY METHOD 12/23/2024 3:43 PM [facility] VLDL Cholesterol Tad 24.4 mg/dL LAB CHEMISTRY METHOD 12/23/2024 3:43 PM [facility] Non HDL Chol. (LDL+VLDL) 82 <145 mg/dL LAB CHEMISTRY METHOD 12/23/2024 3:43 PM [facility] Chol/HDL Ratio 2.1 0.0 - 4.4 LAB CHEMISTRY METHOD 12/23/2024 3:43 PM [facility] Blood Venous blood specimen / Unknown Venipuncture / Unknown 12/23/2024 11:40 AM EDT 12/23/2024 11:43 AM EDT Jerri Leija NP LAB BLOOD ORDERABLES Final Resu lt [facility] [address] [place] [address], [place] [phone] * Basic metabolic panel (12/23/2024 11:40 AM EDT) Sodium 136 133 - 145 mmol/L LAB CHEMISTRY METHOD 12/23/2024 3:40 PM EDT [facility] Potassium 4.1 3.5 - 5.5 mmol/L LAB CHEMISTRY METHOD 12/23/2024 3:40 PM EDT [facility] Chloride 100 96 - 110 mmol/L LAB CHEMISTRY METHOD 12/23/2024 3:40 PM T [facility] CO2 30 21 - 32 mmol/L LAB CHEMISTRY METHOD 12/23/2024 3:40 PM T [facility] Anion Gap 6 3 - 11 LAB CHEMISTRY METHOD 12/23/2024 3:40 PM [facility] Glucose 98 70 - 100 mg/dL LAB CHEMISTRY METHOD 12/23/2024 3:40 PM [facility] BUN 14 5 - 25 mg/dL LAB CHEMISTRY METHOD 12/23/2024 3:40 PM T [facility] Creatinine 0.91 0.50 - 1.10 mg/dL LAB CHEMISTRY METHOD 12/23/2024 3:40 PM [facility] eGFR 65 >=60 mL/min/1. 73m2 LAB CHEMISTRY METHOD 12/23/2024 3:40 PM [facility] Comment:Calculation based on the Chronic Kidney Disease Epidemiology Collaboration (CKD-EPI) equation refit without adjustment for race. 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
[2025-07-16 11:09] VITALS: PULSE 62; O2SAT 93
== END 2025-07-16 10:52 | disposition home or self-care (01) ==
LOC: HO.HPS 09:50
PROVIDERS: PCP Nurse Practitioner Primary Care; Visit Provider Hospitalist
DX: J43.2 Centrilobular emphysema (principal); J96.11 Chronic respiratory failure with hypoxia; S22.000A Wedge compression fracture of unspecified thoracic vertebra, initial encounter for closed fracture; G47.33 Obstructive sleep apnea (adult) (pediatric)
CPT/HCPCS: 94618; 99215; G2211

== ENCOUNTER → 2025-07-16 09:49 | Outpatient (BNVA) | payer MEDICARE, SELFPAY | PROVIDERS: PCP Nurse Practitioner Primary Care; Visit Provider Hospitalist | DX: J43.2 Centrilobular emphysema (principal); J96.11 Chronic respiratory failure with hypoxia; S22.000A Wedge compression fracture of unspecified thoracic vertebra, initial encounter for closed fracture; G47.33 Obstructive sleep apnea (adult) (pediatric); Z99.89 Dependence on other enabling machines and devices; D64.9 Anemia, unspecified | CPT/HCPCS: 94618; 99212 ==

== ENCOUNTER → 2025-07-23 11:11 | Outpatient (REF) | payer MEDICARE, SELFPAY ==
--- OUTSIDE RECORDS SUMMARY | 2018-02-27 08:29 | XMS_ITS | Encounter Summary ---
Author Organization [facility] Address [address] [place] [address] [place] [phone] Phone Care Team Providers Care Trouble Shooter Name Role Phone Kristian Ewing MD Primary Care Provid er Encounter Details Date Type Department Care Team (Late st Contact Info) Description 02/27/2018 8:29 AM EDT Hospital Encounter [facility] [place] Cardiac US [address] [place] [address] Alireza Hayes MD 55 [facility] [address] [place] [address] [email or web address] Social History Tobacco Use Types Packs/Day Years [...] Attending: Dr Andres Ji. Make and Model: [id number] Type of sedation: General Anesthesia Sedation administered [...] fibrillation documented in this encounter Care Teams Trouble Shooter Relationship Specialty Start Date End Date Kristian Ewing MD [address] [place] [address] PCP - General Internal Medicine 10/22/17 documented as of this encounter Additional Source Comments The information contained in this document represents components of the legal health record. It is not the complete legal health record.[facility]
--- NOTE | 2025-07-23 11:18 | ECG_ITS ---
Test Reason : COPD Blood Pressure : */* mmHG Vent. Rate : 63 BPM Atrial Rate : 63 BPM P-R Int : * ms QRS Dur : 158 ms QT Int : 510 ms P-R-T Axes : * -77 83 degrees QTcB Int : 521 ms Ventricular-paced rhythm Abnormal ECG No previous ECGs available Referred By: Shon Gunderson Electronically Signed By: Leonardo Powers
[2025-07-23 11:48] LABS: MANUAL DIFF FLAG NO
[2025-07-23 12:47] LABS: Hematocrit 34.7 % (37.0-47.0); Hemoglobin 11.1 g/dl (12.0-16.0); Imm Gran Abs Auto 0.03 X10*3/uL (0.00-0.03); Imm Gran Pct Auto 0.4 % (0.0-0.4); Lymphocytes Absolute Auto 0.7 X10*3/uL (1.2-4.9); Mean Corpuscular HGB Conc 32.0 g/dl (31.0-35.0); Mean Corpuscular Hemoglobin 31.0 pg (27.0-33.0); Mean Corpuscular Volume 96.9 fL (80.0-98.0); NRBC Abs Auto 0.000 X10*3/uL (0.0-0.012); NRBC Pct Auto 0.0 /100WBC (0.0-0.2); Platelet Count 201 X10*3/uL (160-400); Red Blood Count 3.58 X10*6/uL (4.20-5.50); White Blood Count 8.4 X10*3/uL (4.8-10.8)
[2025-07-23 13:54] LABS: Anion Gap 11 (12-20); Blood Urea Nitrogen 13 mg/dL (9-16); Calcium 8.7 mg/dL (8.4-10.2); Carbon Dioxide 28 mmol/L (22-29); Chloride 106 mmol/L (96-108); Estimated Glomerular Filt Rate > 60; Potassium 3.8 mmol/L (3.3-5.1); Sodium 141 mmol/L (135-145)
--- OUTSIDE RECORDS SUMMARY | 2025-07-23 13:57 | XMS_ITS | Clinical Summary ---
Author Organization [facility] Address [address] [place] [phone] Phone Care Team Providers Care Inverted Block Operator Name Role Phone Kristian Ewing MD Primary [...] Active ferrous sulfate 325 mg (65 mg wilton iron) tablet Take 350 mg by mouth [...] this topic Medical Devices Implanted Type Area Hydrogen Braze Furnace Operator Device Identifier Shelf Expiration Date Model / Serial / Lot Watchman Kaylie Closure [id number] Us - [id number] Implanted:Qty: 1 on 02/27/2018 by Alireza Hayes MD at [facility] KAYLIE Occluder Left: Arterial Dailysingle RAVEN 09/19/2020 [id number] / / [id number] Procedures Procedure Name Priority Date/Time Associated Diagnosis Comments BASIC METABOLIC PANEL Routine 02/28/2018 6:25 AM EDT from Last 3 Months or Most Recently Relevant to Health Maintenance Results * (ABNORMAL) Basic metabolic panel (02/28/2018 6:25 AM EDT) SODIUM 139 135 - 145 mmol/L [facility] POTASSIUM 4.1 3.4 - 5.0 mmol/L [facility] CHLORIDE 102 98 - 108 mmol/L [facility] CO2 21(L) 23 - 32 mmol/L [facility] BUN 15 8 - 25 mg/dL [facility] CREATININE 0.81 0.60 - 1.50 mg/dL [facility] GLUCOSE 117(H) 70 - 110 mg/dL [facility] CALCIUM 8.7 8.5 - 10.5 mg/dL [facility] EGFR 73 >59 mL/min/1. 73m2 [facility] Comment:If patient is black, multiply result by 1.159. Estimated glomerular filtration rate calculated using the CKD-EPI equation. 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 It is not the complete legal health record.[facility]
--- OUTSIDE RECORDS SUMMARY | 2025-07-23 13:57 | XMS_ITS | Clinical Summary ---
Author Organization [facility] [employer] Address [address] [place] [address] Phone Care Team Providers Care Reel Fed Printer Name Role Phone Jerri Leija NP Primary Care Provider [phone] Allergies Active Allergy Reactions Criticality Noted Date [...] 40 mg tabletIndicati ons:Coronary artery disease involving [place] coronary artery of [place] heart without angina pectoris Take 1 tablet (40 mg total) by mouth 1 (one) time each day. 30 each 09/14/20 24 025 Active furosemide (LASIX) 40 mg tabletIndicati ons:Gastro-eso [...] DAILY 45 tablet 1 07/12/20 25 Active omeprazole (PriLOSEC) [address] capsuleIndicat ions:Gastro-es ophageal reflux disease without esophagitis TAKE 1 CAPSULE BY MOUTH DAILY FOR 360 DAYS. 90 capsule 1 07/23/20 25 Active metoprolol succinate (TOPROL-XL) 25 mg 24 hr tablet Take 0.5 Tablets by mouth daily. 02/13/20 24 025 Discontinued omeprazole (PriLOSEC) [address] capsuleIndicat ions:Gastro-es ophageal reflux disease without esophagitis TAKE 1 CAPSULE BY MOUTH DAILY FOR 360 DAYS. 90 capsule 1 02/02/20 25 025 Discontinued Active Problems Problem Noted Date Diagnosed Date Hypercholesterolemia 12/23/2024 Chronic bilateral low back pain with bilateral s ciatica 12/23/2024 Hx of atrioventricular node ablation 09/22/2024 Overview (09/22/2024): Status post AV node ablation and leadless ventricular pacemaker placement in June 2024. Follow-up capture thresholds and sensing are excellent. No [place] conduction. Pacemaker 09/14/2024 Overview (09/22/2024): June 29, 2024 - implant of SJM leadless pacemaker(aveir) with AV node ablation at [facility] by Dr. Berg Assessment & Plan (09/14/2024 12:48 PM EST): Functioning well on EKG. Continue to monitor through device clinic at [facility]. S/p TAVR (transcatheter aort ic valve replacement), bioprosthetic 09/01/2024 Overview (09/01/2024): Successful TAVR using 29mm Evolute Fx plus on July 20, [address] Vogt at [facility]. No complications. Discharged with Aspirin monotherapy. [...] echocardiogram completed. Coronary artery disease invo lving [place] coronary artery of [place] heart without angina pectoris 09/01/2024 Overview (09/01/2024): [...] 01/23/2023 Acute respiratory failure wi th hypoxia (CMS/HCC V24, CMS/HCC V28) 01/04/2022 Chest pain 01/04/2022 (HFpEF) heart failure with p reserved ejection fraction (CMS/HCC V24, CMS/HCC V28) 01/04/2022 Overview (09/01/2024): July 2024 - [...] daily weights and medication compliance. Atrial flutter (CMS/HCC V24, CMS/HCC V28) 11/11/ 2021 Shortness of breath on exertion 08/17/2021 Assessment [...] on chronic diastolic ( congestive) heart failure ([facility] V24, [facility] V28) 11/13/202209/01 Aortic stenosis 08/17/2021 09/01/2024 Overview (07/03/2024): Last Assessment & Plan: She does have moderate aortic stenosis which was also confirmed on MILLIE. Nothing to do at this time. Will continue to monitor. Likely minimally contributory to her dyspnea. Congestive heart failure (CH F) ([facility] V24, [facility] V28) 01/02/2018 09/01/2024 Encounters Date Type Department Care Team Description 07/14/2025 9:30 AM EDT Ancillary Procedure [facility] - [address] [place] [phone] Encounter for adjustment or management of cardiac device 07/08/2025 Telephone [facility] [address] [place] [address] Mariola Vogt MD 06/22/2025 9:30 AM EDT Telemedicine Internal Medicine - [address] [place] [address] Routine general medical examination at a health care facility (Primary Dx); Encounter for subsequent annual wellness visit (AWV) in Medicare patient 06/18/2025 Telephone Internal Medicine - [address] [place] [address] Kathia Cortes MA 05/06/2025 Telephone [facility] [address] [place] [phone] Mariola Vogt MD 04/22/2025 1:15 PM EDT - 04/22/2025 11:59 PM EDT Hospital Encounter [facility] Nuclear Medicine [address] [place] [phone] Discharge Disposition: Home or Self Care 04/22/2025 9:42 AM EDT - 04/22/2025 11:59 PM EDT Hospital Encounter [facility] Nuclear Medicine [address] [place] [address] Lumbar back pain Discharge Disposition: Home or [...] Medical History Medical History Date Comments A-fib ([facility] V24, [facility] V28[facility] Acute respiratory failure with hypoxia ([facility] V24, [facility] V28) Asthma Anxiety NAKIA on CPAP Ventral hernia SOB (shortness of breath) Sciatica Multiple pulmonary nodules COPD (chronic obstructive pulmonary disease) ( S/HCC V24, CMS/[facility] V28) CHF (congestive heart failure) (CMS/[facility] V24, [facility] V28) Acute pancreatitis H/O cataract removal with insertion of prostheti c lens Family History Medical History Relation Name Comments Emphysema Father RI at 74 Heart attack Maternal Grandmother Hypertension [...] care for your loved ones. For example, childcare teacher or elderly care for an older adult? [...] Description 08/19/2025 12:30 PM EST Ancillary Procedure [facility] Cardiology [facility] [address] [facility] [address] [place] [address] 08/27/2025 10:00 AM EST Office Visit Internal Medicine - [address] [place] [address] Jerri Leija NP [address] [place] [address] 09/07/2025 11:10 AM EST Office Visit [facility] Cardiology [facility] [address] [place] [phone] Alex Abbott NP [address] [place] [address] [address] [place] [phone] 01/17/2026 11:00 AM EDT Ancillary Procedure [facility] [address] [facility] [address] [place] [address] Health Maintenance Due Date Last Done Comments [...] this topic Medical Devices Implanted Type Area [employer] Consultant Device Identifier Shelf Expiration Date Model / Serial / Lot Cardiac Pacemaker-06/08 Implanted: by Gonzales Berg MD (Quantity not on file) Cardiac Pacemaker Right: Heart [facility] CRMD++[id number]/ [id number] Description:Leadless Avier V R Abbt-Stju Aveir Vr Lp [id number] -06/29/2024 Implanted: by Gonzales Berg MD (Quantity not on file) Cardiac Pacemaker Left: Chest [facility] VR LP [id number] / [id number] / Abbt-Stju Aveir Vr Lp [id number] Implanted: (Quantity not on file) Cardiac Pacemaker [facility] [employer] [id number] / [id number] / Procedures Procedure Name Priority Date/Time Associated [...] Results * CARDIAC DEVICE CHECK- [facility] (07/14/2025 1:37 PM EDT) Date Time Interrogation Session [id number] CV DEVICE CHECK Implantable Pulse Generator [employer] CV DEVICE CHECK Implantable Pulse Generator Type IPG CV DEVICE CHECK Implantable Pulse Generator Model Aveir VR LP [id number] CV DEVICE CHECK Implantable Pulse Generator Serial Number [id number] CV DEVICE CHECK Implantable Pulse Generator Implant [...] thresholds reviewed and tested * Presenting Rhythm: PAINTER TOUCH UP 60s * No R waves @ VVI 30 bpm today * Heart Rate Histograms reviewed * Pacing and Detection Parameters were evaluated Narrative Procedure Note Gonzales Berg MD - 07/16/2025 IMPRESSION: Normal In-Office: No Events * Normal Device Function * Alerts or events: None * Battery: MOS, 9 years * Sensing, impedance and thresholds reviewed and tested * Presenting Rhythm: PAINTER TOUCH UP 60s * No R waves @ VVI [...] Signed Date: 04/27/2025 12:10 ET Workstation ID: [id number] Transcribed By: Self Edit Transcribed Date: 04/27/2025 [...] Signed Date: 04/27/2025 12:10 ET Workstation ID: [id number] Transcribed By: Self Edit Transcribed Date: 04/27/2025 10:55 ET Lorenzo Thornton MD [facility] PROCEDURES Final Result * Lipid panel with reflex to direct LDL (12/23/2024 11:40 AM EDT) Cholesterol 157 0 - 200 mg/dL LAB CHEMISTRY METHOD 12/23/2024 3:43 PM EDT [facility] Triglycerides 122 0 - 150 mg/dL LAB CHEMISTRY METHOD 12/23/2024 3:43 PM EDT [facility] HDL 75 >=40 mg/dL LAB CHEMISTRY METHOD 12/23/2024 3:43 PM EDT [facility] LDL Calculated 58 0 - 100 mg/dL LAB CHEMISTRY METHOD 12/23/2024 3:43 PM EDT [facility] VLDL Cholesterol Tad 24.4 mg/dL LAB CHEMISTRY METHOD 12/23/2024 3:43 PM EDT [facility] Non HDL Chol. (LDL+VLDL) 82 <145 mg/dL LAB CHEMISTRY METHOD 12/23/2024 3:43 PM EDT [facility] Chol/HDL Ratio 2.1 0.0 - 4.4 LAB CHEMISTRY METHOD 12/23/2024 3:43 PM EDT [facility] Blood Venous blood specimen / Unknown Venipuncture / Unknown 12/23/2024 11:40 AM EDT 12/23/2024 11:43 AM EDT Jerri Leija OPERATING MANAGER LAB BLOOD ORDERABLES Final Resu lt [facility] [address] [place] [address], * Basic metabolic panel (12/23/2024 11:40 AM EDT) Sodium 136 133 - 145 mmol/L LAB CHEMISTRY METHOD 12/23/2024 3:40 PM [facility] Potassium 4.1 3.5 - 5.5 mmol/L LAB CHEMISTRY METHOD 12/23/2024 3:40 PM [facility] Chloride 100 96 - 110 mmol/L LAB CHEMISTRY METHOD 12/23/2024 3:40 PM [facility] CO2 30 21 - 32 mmol/L LAB CHEMISTRY METHOD 12/23/2024 3:40 PM T [facility] Anion Gap 6 3 - 11 LAB CHEMISTRY METHOD 12/23/2024 3:40 PM [facility] Glucose 98 70 - 100 mg/dL LAB CHEMISTRY METHOD 12/23/2024 3:40 PM [facility] BUN 14 5 - 25 mg/dL LAB CHEMISTRY METHOD 12/23/2024 3:40 PM EDT [facility] Creatinine 0.91 0.50 - 1.10 mg/dL LAB CHEMISTRY METHOD 12/23/2024 3:40 PM EDT [facility] eGFR 65 >=60 mL/min/1. 73m2 LAB CHEMISTRY METHOD 12/23/2024 3:40 PM EDT [facility] Comment:Calculation based on the Chronic Kidney Disease Epidemiology Collaboration (CKD-EPI) equation refit without adjustment for race. 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
--- OUTSIDE RECORDS SUMMARY | 2025-07-23 13:57 | XMS_ITS | Encounter Summary ---
Author Organization Located [facility] Address [address] [place] [address] Phone Care Team Providers Care Systems Testing Laboratory Technician Name Role Phone Kristian Ewing MD Primary Care Provid er Encounter Details Date Type Department Care Team (Late st Contact Info) Description 02/27/2018 Procedure Pass [facility] EP Pacer Lab [address], [address] [place] [phone] Social History Tobacco Use Types Packs/Day Years [...] on filedocumented in this encounter Care Teams Systems Testing Laboratory Technician Relationship Specialty Start Date End Date Kristian Ewing MD [address] [place] [address] PCP - General Internal Medicine 10/22/17 documented as of this encounter Additional Source Comments The information contained in this document represents components of the legal health record. It is not the complete legal health record.Loc[facility]
--- OUTSIDE RECORDS SUMMARY | 2025-07-23 13:57 | XMS_ITS | Encounter Summary ---
Author Organization [facility] Address [address] [place] [address] Care Team Providers Care Foundry Engineer Name Role Phone Jerri Leija NP Primary Care Provider [phone] Reason for Visit * Reason Onset Date Comments pt needs labs before 09/07/25 TAVR f/u visit daphne fle[facility] [place] Encounter Details Date Type Department Care Team (Late st Contact Info) Description 07/08/2025 Telephone [facility] Cardiology [facility] [address] [place] [address] Mariola Vogt MD [address] [place] [address] [place] [address] Social History Tobacco Use Types [...] care for your loved ones. For example, children counselor or elderly care for an older [...] Description 08/19/2025 12:30 PM EST Ancillary Procedure [facility] [address] [place] [address] 08/27/2025 10:00 AM EST Office Visit Internal Medicine - [facility] [address] [place] [address] Jerri Leija NP [address] [place] [address] 09/07/2025 11:10 AM EST Office Visit [facility] [address] [place] [address] Alex Abbott NP [address] [place] [address] [facility] [address] [place] [address] 01/17/2026 11:00 AM EDT Ancillary Procedure [facility] [address] [facility] [address] [place] [address] documented as of this encounter Visit Diagnoses Not on filedocumented in this encounter Additional Health Concerns Assessment Noted Time PHQ-9 Depression Total Score: 0 06/22/20 25 9:59 AM EDT documented as of this encounter Care Teams Foundry Engineer Relationship Specialty Start Date End Date Jerri Leija NP [address] [place] [address] PCP - General 11/13/22 documented as of this encounter
== END ==
LOC: HO.CARD 11:11
PROVIDERS: PCP Nurse Practitioner Primary Care; Visit Provider Hospitalist
DX: J43.2 Centrilobular emphysema (principal)
CPT/HCPCS: 36415; 80048; 82785; 85025; 85652; 93005

== ENCOUNTER → 2025-07-23 11:18 | Outpatient (BNV) | payer MEDICARE, SELFPAY | PROVIDERS: PCP Nurse Practitioner Primary Care; Visit Provider Internal Medicine Cardiovascular Disease | DX: R94.31 Abnormal electrocardiogram [ECG] [EKG] (principal); Z95.0 Presence of cardiac pacemaker | CPT/HCPCS: 93010 ==